=== PATIENT | female | born 1965 | race Caucasian/White ===

== ENCOUNTER 2018-11-24 09:13 | Outpatient (CLI) | payer OTHER, SELFPAY ==
--- NOTE | 2018-11-24 09:03 | DI.RAD_ITS ---
SYMPTOM/DIAGNOSIS: LONG FINGER PAIN RIGHT HAND: The bony structures are normally mineralized. There are mild degenerative changes involving the distal interphalangeal joints. At the distal interphalangeal joint of the right middle finger, there are small adjacent areas of soft tissue calcification. There is no apparent fracture or dislocatio and the findings are presumably on a degenerative basis with nothing to suggest bony erosion.
== END 2018-11-24 09:33 ==
PROVIDERS: PCP Internal Medicine; Visit Provider Physician Assistant Surgical
DX: M79.644 Pain in right finger(s) (principal); M79.641 Pain in right hand; M15.1 Heberden's nodes (with arthropathy)
CPT/HCPCS: 73120

== ENCOUNTER 2018-12-21 08:28 | Outpatient (CLI) | payer OTHER, SELFPAY ==
--- NOTE | 2018-12-21 12:54 | W.PREOPHP ---
Date of service: 12/21/18 Time of Service: 08:54 Assessment and Plan (1) Hyseterectomy, Total Laparoscopic w/ BSO: Current visit: No Status: Resolved (2) Mass of soft tissue of right upper extremity: Current visit: Yes Status: Acute Patient will undergo an excisional biopsy at the base of her right long finger radial lateral side to decrease her at rest and pain with flexion with the differential diagnosis to include a dermoid, subcu cyst , granuloma or ganglion. 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 She has had x-rays of her hand that look fully benign the increase in pain with at rest and with flexion as well as increase in size has prompted the patient to seek operative intervention to remove the offending mass. Pertinent Surgical Information Denies previous medical history of: stroke, TIA, [place], use of sublingual nitroglycerin, GERD, seizures, diabetes, thyroid disease, sleep apnea, liver disease, hepatitis, hematologic disorders Denies previous complications from surgery or anesthesic agents with respect to high fever, prolonged vomiting and difficulty waking up Review of Systems Review of Systems All systems reviewed & are unremarkable except as noted in HPI and below Constitutional Denies fever(s) and Denies headache(s) ENT Denies headache(s), Denies nasal congestion, Denies nasal discharge and Denies sore throat Cardiovascular Denies chest pain, Denies chest pain with activity, Denies palpitations, Denies dyspnea on exertion, Denies orthopnea and Denies paroxysmal nocturnal dyspnea Respiratory Denies cough, Denies excessive phlegm production, Denies pain on inspiration, Denies dyspnea on exertion and Denies wheezing Gastrointestinal Denies abdominal pain, Denies melena, Denies hematochezia, Denies nausea and Denies vomiting Genitourinary Denies hematuria, Denies urinary frequency and Denies dysuria Comments: Denies burning sensation with urination Musculoskeletal Reports as per HPI Neurologic Denies headache(s) Psychiatric Denies anxiety and Denies depression Endocrine Denies palpitations Comments: Denies any unplanned weight changes Allergic/Immunologic Denies wheezing [facility] Medical History History of anxiety (Acute) Benign hypertension Surgical History History of colonoscopy (Chronic) Hyseterectomy, Total Laparoscopic w/ BSO (Resolved) Excision, Distal Clavicle Laparoscopy, diagnostic Ulnar Nerve Transposition (07/08/10) fasciotomy right lateral epicondylitis (08/26/10) Family History Other Cancer Diabetes Heart disease Social History Smoking/Tobacco Use Status: Current every day Tobacco Type: cigarettes Tobacco: How many years used: 30 Alcohol Intake: current Alcohol Intake frequency: a few times a week Drug use: Never Do you feel safe at home: Yes Do you feel safe in your relationship?: Yes Meds Home Medications Medication Instructions Recorded Confirmed Type albuterol sulfate [Proair Hfa] 1 gm INHALATION PRN PRN 11/05/13 12/21/18 History ipratropium 20 mcg-albuterol 100 1 puff IH QID 11/24/18 12/21/18 History mcg/actuation mist for inhalation cetirizine [Zyrtec] 10 mg PO DAILY 12/21/18 12/21/18 History Allergies Allergy/AdvReac Type Severity Reaction Status Date / Time Sulfa (Sulfonamide Allergy Severe rash, Unverified 12/21/18 08:46 Antibiotics) lips/tongue swelling Exam Const General: cooperative HENMT Throat: posterior oropharynx normal Eyes General: appearance normal, both eyes and all related structures Conjunctivae: conjunctivae normal Sclera: sclerae normal Neck Neck: no JVD Carotids: normal carotid upstroke and no bruits Resp Effort & Inspection: normal respiratory effort and able to speak in complete sentences Auscultation: clear to auscultation bilaterally, no rales, no rhonchi and no wheezes Cardio Rate: regular rate Heart Sounds: S1 normal, S2 normal and no murmurs Bruits: no abdominal aortic bruits Pulses: normal peripheral pulses Other: No pulsatile mass noted with palpation over the abdominal aorta GI Palpation: soft and no hepatosplenomegaly Auscultation: normal bowel sounds General: No CVA tenderness Extrem General: no pedal edema Other: exquisite light touch tenderness base of long finger with normal flexor and extensor tendon functioning .nl light toch sensation . no overlying warmth/redness or palpable fluctulance.
--- NOTE | 2018-12-21 13:07 | HPE_ITS ---
Date of service: 12/21/18 Time of Service: 08:54 Assessment and Plan (1) Hyseterectomy, Total Laparoscopic w/ BSO: Current visit: No Status: Resolved (2) Mass of soft tissue of right upper extremity: Current visit: Yes Status: Acute Patient will undergo an excisional biopsy at the base of her right long finger radial lateral side to decrease her at rest and pain with flexion with the differential diagnosis to include a dermoid, subcu cyst , granuloma or ganglion. 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 She has had x-rays of her hand that look fully benign the increase in pain with at rest and with flexion as well as increase in size has prompted the patient to seek operative intervention to remove the offending mass. Pertinent Surgical Information Denies previous medical history of: stroke, TIA, [place], use of sublingual nitroglycerin, GERD, seizures, diabetes, thyroid disease, sleep apnea, liver disease, hepatitis, hematologic disorders Denies previous complications from surgery or anesthesic agents with respect to high fever, prolonged vomiting and difficulty waking up Review of Systems Review of Systems All systems reviewed & are unremarkable except as noted in HPI and below Constitutional Denies fever(s) and Denies headache(s) ENT Denies headache(s), Denies nasal congestion, Denies nasal discharge and Denies sore throat Cardiovascular Denies chest pain, Denies chest pain with activity, Denies palpitations, Denies dyspnea on exertion, Denies orthopnea and Denies paroxysmal nocturnal dyspnea Respiratory Denies cough, Denies excessive phlegm production, Denies pain on inspiration, Denies dyspnea on exertion and Denies wheezing Gastrointestinal Denies abdominal pain, Denies melena, Denies hematochezia, Denies nausea and Denies vomiting Genitourinary Denies hematuria, Denies urinary frequency and Denies dysuria Comments: Denies burning sensation with urination Musculoskeletal Reports as per HPI Neurologic Denies headache(s) Psychiatric Denies anxiety and Denies depression Endocrine Denies palpitations Comments: Denies any unplanned weight changes Allergic/Immunologic Denies wheezing [facility] Medical History History of anxiety (Acute) Benign hypertension Surgical History History of colonoscopy (Chronic) Hyseterectomy, Total Laparoscopic w/ BSO (Resolved) Excision, Distal Clavicle Laparoscopy, diagnostic Ulnar Nerve Transposition (07/08/10) fasciotomy right lateral epicondylitis (08/26/10) Family History Other Cancer Diabetes Heart disease Social History Smoking/Tobacco Use Status: Current every day Tobacco Type: cigarettes Tobacco: How many years used: 30 Alcohol Intake: current Alcohol Intake frequency: a few times a week Drug use: Never Do you feel safe at home: Yes Do you feel safe in your relationship?: Yes Meds Home Medications Medication Instructions Recorded Confirmed Type albuterol sulfate [Proair Hfa] 1 gm INHALATION PRN PRN 11/05/13 12/21/18 History ipratropium 20 mcg-albuterol 100 1 puff IH QID 11/24/18 12/21/18 History mcg/actuation mist for inhalation cetirizine [Zyrtec] 10 mg PO DAILY 12/21/18 12/21/18 History Allergies Allergy/AdvReac Type Severity Reaction Status Date / Time Sulfa (Sulfonamide Allergy Severe rash, Unverified 12/21/18 08:46 Antibiotics) lips/tongue swelling Exam Const General: cooperative HENMT Throat: posterior oropharynx normal Eyes General: appearance normal, both eyes and all related structures Conjunctivae: conjunctivae normal Sclera: sclerae normal Neck Neck: no JVD Carotids: normal carotid upstroke and no bruits Resp Effort & Inspection: normal respiratory effort and able to speak in complete sentences Auscultation: clear to auscultation bilaterally, no rales, no rhonchi and no wheezes Cardio Rate: regular rate Heart Sounds: S1 normal, S2 normal and no murmurs Bruits: no abdominal aortic bruits Pulses: normal peripheral pulses Other: No pulsatile mass noted with palpation over the abdominal aorta GI Palpation: soft and no hepatosplenomegaly Auscultation: normal bowel sounds General: No CVA tenderness Extrem General: no pedal edema Other: exquisite light touch tenderness base of long finger with normal flexor and extensor tendon functioning .nl light toch sensation . no overlying warmth/redness or palpable fluctulance.
== END 2018-12-21 08:48 ==
PROVIDERS: PCP Internal Medicine; Visit Provider Orthopaedic Surgery
DX: R22.31 Localized swelling, mass and lump, right upper limb (principal); Z01.818 Encounter for other preprocedural examination

== ENCOUNTER 2018-12-22 12:15 | Day surgery (SDC) | payer OTHER, SELFPAY ==
[2018-12-22 12:36] VITALS: BP 133/84; PULSE 78; RESP 16; TEMP 35.5; O2SAT 98
[2018-12-22] MEDS: Lactated Ringers 1,000 ML 80 ML IV (12:56)
[2018-12-22] MEDS: ceFAZolin 1 GM/50 ML BAG IVPB (15:05)
[2018-12-22] MEDS: Lidocaine 1% Pres-Free 5 ML VIAL (15:23)
--- NOTE | 2018-12-22 15:36 | W.PM.DSUDISC ---
Discharge Plan Disposition Patient Disposition: HOME Condition: Good Discharge Details Reason For Visit: excision soft tissue mass RMF Attending Provider: Yonatan Roberts Primary Care Provider: Sonido Dominguez Home Meds and New Rx's Prescriptions: Continued Combivent Respimat 20-100 mcg/actuation mist 1 puff IH QID RF: 0 albuterol sulfate [ProAir HFA] 8.5 GM HFA aerosol inhaler 1 gm Inhalation PRN PRNRF: 0 cetirizine [Zyrtec] 10 mg Tablet 10 mg PO DAILY RF: 0 Discharge Instructions Additional Instructions: Try to elevate R hand above heart level as much as possible overnite tonite. May use R hand as much as your discomfort allows. Take tylenol or ibuprofen for pain. May remove dressings, shower, and get incision wet after 48 hours.(Thursday evening.) Leave incision uncovered when it is dry and sealed. Follow up with in 2 weeks. Stand Alone Forms: DSU Post op Instructions, Shoaib Cohen (DSU) Referrals: Yontaan Roberts MD [ [facility] STAFF PHYSICIAN] - (f/u in 2 weeks.) Activity:: Activity as Tolerated Remove Dressings/Wound Care:: 48 hours Shower/Bathe:: 48 hours Diet:: As Tolerated Discharge Orders Discharge Orders: Discharge Order (Routine); Ordered 12/22/18 Ordered By: Yonatan Roberts DS: Diagnosis Discharge Diagnosis (1) Mass of soft tissue of right upper extremity: Status: Acute
--- NOTE | 2018-12-23 13:40 | ROE_ITS ---
Date of Surgery: December 22, 2018 Preoperative Diagnosis: Painful subcutaneous mass, dorsum of right middle finger. Postoperative Diagnosis: Same. Procedure: Excision of painful mass, probable lipoma from the right middle finger. Anesthesia: Local infiltration 1% Xylocaine and 0.5% Marcaine with epinephrine solution. Surgeon: Yonatan Roberts M.D. Indications: This is a 52-year-old white female who has been extremely bothered by a painful subcutaneous nodule o n the dorsoradial aspect of her right middle finger. The mass appears to be adjacent to the base of the proximal phalanx and just radial to the extensor tendon of the middle finger. It's exquisitely t sonia to touch. It is small, probably measures 5 to 6 mm in diameter and appears to be subcu. Excis ion was recommended for pain relief. The risks and complications of the procedure were explained to the patient in detail preoperatively. Description of the Operative Procedure: Patient is taken to the operating room on 12/22/18. She is placed supine on the operating table. The right hand is prepped and draped free in the usual sterile fashion. Proximal tourniquet is applied to the right upper extremity. I infiltrate over the mass with 1% Xylocaine solution and then carry t he infiltration down in a palmar direction to anesthetize the radial digital nerve. The mass is outl ined with a marking pen, then a longitudinal incision is made over the mass. The incision is carried down to the skin to the subcu. There appears to be a small collection of fat consistent with a lipo ma; this is sharply excised. I then free up the extensor marlow, and with a retractor I am able to exp ose the base of the proximal phalanx of the middle finger on the radial side and there is no bony mas s projecting. The tendon itself looks normal. The incision is done with tourniquet control. Subcut aneous veins are now cauterized. I don't send a specimen to Pathology because it looks like benign f atty tissue. The wound margins were infiltrated with 0.5% Marcaine with epinephrine solution and the skin edges were approximated with interrupted 4-0 nylon sutures. The wound was dressed with Xerofor m gauze, sterile gauze 4x4s, then wrapped with a Mary Ellen bandage. Tourniquet was released and there wa s no breakthrough bleeding to the dressing. The patient tolerated the procedure well and is discharg ed to Day Surgery Unit in good condition. Patient is discharged home from Day Surgery Unit with instructions to use her right hand as much as scott sunshine allows. She is to keep the dressings intact and dry for 72 hours. After 72 hours she may remove the dressings, shower or bathe and get the incision wet. She can leave the incision uncovered when it's dry and sealed. She can take ibuprofen or Tylenol for pain. She will follow up with Dr. Roberts in two weeks.
== END 2018-12-22 16:01 | disposition home or self-care (01) ==
PROVIDERS: PCP Internal Medicine; Visit Provider Orthopaedic Surgery
PROC: (CPT 11421; principal; 2018-12-22 15:00)
DX: R22.31 Localized swelling, mass and lump, right upper limb (principal); M79.644 Pain in right finger(s); I10 Essential (primary) hypertension
CPT/HCPCS: 11421; 99211; J0690

== ENCOUNTER 2019-05-11 01:20 | Outpatient (CLI) | payer OTHER, SELFPAY ==
--- NOTE | 2019-05-11 08:58 | DI.MAMMO_ITS ---
SYMPTOM/DIAGNOSIS: SCREENING, Z12.31, FAMILY H/O BREAST CA MAMMOGRAMS: Mammograms were interpreted according to the usual protocol including computer analysis with CAD system, tomosynthesis and C view imaging. Comparison is made with prior examinations. Breast density, category B. No suspicious masses or microcalcifications are seen. There is no definite evidence of malignancy. IMPRESSION: Negative mammogram. Routine screening is recommended. Category 1. MQSA ASSESSMENT OF FINDINGS: Negative. Category 1. Patient will receive a letter notifying them of these results. BI-RADS category B. There are scattered areas of fibroglandular density.
== END 2019-05-11 01:40 ==
PROVIDERS: PCP Internal Medicine; Visit Provider Nurse Practitioner Family
DX: Z12.31 Encounter for screening mammogram for malignant neoplasm of breast (principal); Z80.3 Family history of malignant neoplasm of breast
CPT/HCPCS: 77063; 77067

== ENCOUNTER 2020-03-13 11:59 | Outpatient (CLI) | payer OTHER, SELFPAY ==
--- NOTE | 2020-03-13 11:45 | DI.RAD_ITS ---
EXAM: XR ELBOW RT COMPLETE CLINICAL HISTORY: right elbow pain. TECHNIQUE: 2D digital imaging was performed. COMPARISON: No exams were available for comparison FINDINGS: BONES: No acute fracture is present. No bony destructive lesion is seen. There is a well corticated osseous density adjacent to the lateral epicondyle consistent with old injury. JOINTS: The elbow is normally aligned. No joint effusion is seen. SOFT TISSUE: Normal. IMPRESSION: No acute abnormality. DATA REPOSITORY: RADIATION DOSE DELIVERED:
== END 2020-03-13 12:19 ==
PROVIDERS: PCP Internal Medicine; Referring Provider Internal Medicine; Visit Provider Physician Assistant Surgical
DX: M25.521 Pain in right elbow (principal); M79.89 Other specified soft tissue disorders
CPT/HCPCS: 73080

== ENCOUNTER 2020-03-30 07:50 | Outpatient (CLI) | payer OTHER, SELFPAY ==
[2020-04-01 17:23] LABS: COVID-19 RT-PCR Result NEGATIVE (Negative)
== END 2020-03-30 08:10 ==
PROVIDERS: PCP Internal Medicine; Visit Provider Orthopaedic Surgery
DX: Z01.818 Encounter for other preprocedural examination (principal)
CPT/HCPCS: U0003

== ENCOUNTER 2020-04-02 07:29 | Day surgery (SDC) | payer OTHER, SELFPAY ==
[2020-04-02] VITALS (9 sets, daily range): BP systolic 96–127; BP diastolic 57–89; PULSE 72–90; RESP 11–19; TEMP 36.2–36.6; O2SAT 92–98
[2020-04-02] MEDS: Lactated Ringers 1,000 ML 80 ML IV (08:23)
[2020-04-02] MEDS: ceFAZolin 1 GM/50 ML BAG IVPB (09:05)
--- NOTE | 2020-04-02 09:58 | PDOC.DSDIS_ITS ---
Discharge Plan Disposition Patient Disposition: HOME Condition: Good Discharge Details Reason For Visit: EXCISION OF EXOSTOSIS R HUMERUS Attending Provider: Yonatan Roberts Primary Care Provider: Sonido Dominguez Home Meds and New Rx's Prescriptions: New hydrocodone-acetaminophen 5-325 mg tablet 1 tab PO Q6H PRN (Reason: pain) Qty: 7 RF: 0 ibuprofen 600 mg tablet 600 mg PO Q6H PRNQty: 20 RF: 0 Continued Combivent Respimat 20-100 mcg/actuation mist 1 puff IH QID RF: 0 fluoxetine [Prozac] 40 mg capsule 40 mg PO DAILY RF: 0 buspirone 7.5 mg tablet 7.5 mg PO DAILY RF: 0 albuterol sulfate [ProAir HFA] 8.5 GM HFA aerosol inhaler 1 gm Inhalation PRN PRNRF: 0 cetirizine [Zyrtec] 10 mg Tablet 10 mg PO DAILY RF: 0 Discharge Instructions Additional Instructions: May take R arm out of sling and move R elbow as much as your discomfort allows. Discontinue sling when you no longer need it for pain. Keep dressings dry and in place for 72 hours. After 72 hours, remove dressings, shower, and get incision wet. May then leave incision uncovered if it is dry and sealed. Use R arm as much as your discomfort allows. Follow up with in 2 weeks. Take ibuprofen for mild pain. Take hydrocodone for breakthru pain, if needed. Referrals: Yonatan Roberts MD [ [facility] STAFF PHYSICIAN] - (f/u in 2 weeks.) Equipment/Supplies: Sling Activity:: Activity as Tolerated Remove Dressings/Wound Care:: 72 hours Shower/Bathe:: 72 hours Diet:: As Tolerated Discharge Orders Discharge Orders: Discharge Order (Routine); Ordered 04/02/20 Ordered By: Yonatan Roberts DS: Diagnosis Discharge Diagnosis (1) Exostosis of right humerus: Status: Acute
[2020-04-02] MEDS: fentaNYL 100 MCG/2 ML VIAL IVP (10:35)
--- NOTE | 2020-04-02 11:12 | ROE_ITS ---
Date of service: 04/02/20 Time of Service: 11:13 Operative Note Operative Note DATE OF PROCEDURE: 04/02/20 PRE-OP DIAGNOSIS: Exostosis right distal humerus POST-OP DIAGNOSIS: same PROCEDURE: Excision of exostosis right distal humerus ANESTHESIA: GETA PATHOLOGY: none sent TOURNIQUET TIME: 48 COMPLICATIONS: None Patient was transported to: PACU Patient's condition: stable Indications: Is a 54-year-old white female who underwent successful surgery for lateral epicondylitis 10 years ago. She presents now with a painful mass over the lateral condyle. X-rays revealed the mass to be an exostosis arising the lateral epicondyle. Most likely this was posttraumatic due to previous surgery. It is quite prominent and is painful whenever she bumps it. Excision of the exostosis is recommended to alleviate her pain. There is complications of procedure explained patient detail preop. Procedure Description: Patient was taken the operating room on 04/02/2020 and placed supine operative table. General anesthetic was administered. Proximal tourniquet was applied to the right upper arm. The right upper extremity was prepped from fingers to turn again and draped free in usual sterile fashion. I made an incision in line with her old operative scar over the lateral condyle. Incision was carried down through the skin and subcu to the fascia. Incision was made in the fascia over the bony prominence sharp dissection was used to free the soft tissues around the exostosis. The exostosis was then removed using a rongeur, small Mccracken osteotomes and a mallet. The bony bed was then further smoothed with a nasal rasp. The wound was irrigated with saline solution. The fascia and that was incised was approximated with interrupted [id number] sutures of 2-0 Vicryl suture tear. The wound margins were infiltrated with 0.5% Marcaine with epinephrine solution. Wound was irrigated with saline solution. The skin and subcu were approximated interrupted 3-0 nylon sutures. The wound was dressed with Xeroform gauze sterile gauze 4 x 4's ABD pad wrapped with a Kerlix bandage and then wrapped with a 4 inch [place] bandage. The right arm was placed in a sling. Tourniquet was released and there was no breakthrough bleeding to the skin. The patient's general anesthesia was reversed complications she was discharged to the recovery room in good condition. Patient was later discharged home from day surgery unit and fully recovered from her general anesthesia. She is given instructions to take her right arm out of the sling as much as discomfort allows. She may discontinue the sling when it is no longer needed for comfort. She is keep the dressings dry and intact for 72 hours. For 72 hours she can remove the dressings shower and get her incision wet. She can leave the incision uncovered when is dry and sealed. She is given prescription for mild pain of ibuprofen 600 mg p.o. every 6 hours as needed. She is given a prescription for breakthrough pain of hydrocodone with APAP 01/14/2025. She will follow-up with Dr. Roberts in 2 weeks. May use her right arm as much as discomfort allows.
== END 2020-04-02 12:05 | disposition home or self-care (01) ==
PROVIDERS: PCP Internal Medicine; Visit Provider Orthopaedic Surgery
PROC: (CPT 24105; principal; 2020-04-02 08:30)
DX: M89.8X2 Other specified disorders of bone, upper arm (principal)
CPT/HCPCS: 24110; J0690; J1100; J1885; J2250; J2405; J2704; J3010; L3650

== ENCOUNTER 2020-06-13 02:42 | Outpatient (CLI) | payer OTHER, SELFPAY ==
--- NOTE | 2020-06-13 12:16 | DI.MAMMO_ITS ---
EXAM: MAMMO SCREENING CLINICAL HISTORY: SCREENING,Z12.31 TECHNIQUE: Mammograms were interpreted according to the usual protocol including computer analysis w [employer] CAD system, tomosynthesis and C-view imaging. COMPARISON: 2010 through 2018 FINDINGS: The breasts are composed of scattered fibroglandular densities, Breast Density category B. No suspicious masses or suspicious microcalcifications are seen. No skin thickening or abnormal axillary lymph nodes are seen. There has been no significant change from prior exams. There is motion on the left MLO view. Patient should return for repeat left MLO view at no additiona l charge. IMPRESSION: BI-RADS Category 0 - Assessment Incomplete: Need additional imaging evaluation Breast Density - Category B, scattered fibroglandular densities. A negative radiographic report should not delay biopsy if a dominant or clinically suspicious mass is present. Up to ten percent of cancers are not identified on mammography. A negative report may reinforce clinical impression. Adenosis and dense breasts may obscure an underlying neoplasm. False positive reports average 6 to 10%. Patient will receive a letter notifying them of these results.
== END 2020-06-13 03:02 ==
PROVIDERS: PCP Internal Medicine; Visit Provider Nurse Practitioner Family
DX: Z12.31 Encounter for screening mammogram for malignant neoplasm of breast (principal)
CPT/HCPCS: 77063; 77067

== ENCOUNTER 2020-06-20 00:54 | Outpatient (CLI) | payer OTHER, SELFPAY ==
--- NOTE | 2020-06-20 | DI.MAMMO_ITS ---
EXAM: MG MAMMO SCREEN CALL BACK UNI CLINICAL HISTORY: F/U MAMMO 06/13 MOTION ON LT MLO VIEW, NO CHARGE TECHNIQUE: Mammograms were interpreted according to the usual protocol including computer analysis w [facility] CAD system, tomosynthesis and C-view imaging. COMPARISON: Prior studies including April 2019. FINDINGS: Additional MLO views of the left breast were obtained today to complete this examination due to motio n artifact on the original study of June 13. No mass or clumped microcalcification is seen. No change in appearance in comparison with prior studies including April 2019. IMPRESSION: No specific evidence of malignancy at this time. routine screening examinations are recommended at yearly intervals in this age group according to the ACS/ACR guidelines. BI-RADS Category 1 - Negative Breast Density - Category B - Scattered areas of fibroglandular density
== END 2020-06-20 01:14 ==
PROVIDERS: PCP Internal Medicine; Visit Provider Nurse Practitioner Family
DX: Z12.31 Encounter for screening mammogram for malignant neoplasm of breast (principal)
CPT/HCPCS: 77063; 77067

== ENCOUNTER 2021-09-27 01:48 | Outpatient (CLI) | payer OTHER, SELFPAY ==
--- NOTE | 2021-09-27 | DI.DEXA_ITS ---
Exam(s) XR DEXA BONE DENSITY W/WO TYLER EXAM: XR DEXA BONE DENSITY W/WO TYLER CLINICAL HISTORY: OSTEOPENIA,M85.80,[facility],Z00.00 TECHNIQUE: Routine DEXA evaluation of the lumbar spine, hip, or forearm. COMPARISON: Prior DEXA scan June 2011 FINDINGS: Performed on a [employer] unit. Lateral image: No compression fracture evident. Lumbar Spine total T-score: -2.8. Prior 2010 reading was -1.0 Hip total T-score:-1.9.. Prior 2010 reading was -0.7 Independent reading at the level of the femoral neck yields at T-score of -2.8. Forearm total T-score: 1.1 IMPRESSION: Bone mineral density measures in the osteoporosis range. Fracture risk is high. Note: Any spine fracture indicates 5x risk for subsequent spine fracture and 2x risk for subsequent h ip fracture. World Health Organization criteria for BMD interpretation classify patients: Normal...... T- Score at or above -1.0 Osteopenic... T- Score between -1.0 and -2.5 Osteoporosis... T-Score at or below -2.5
== END 2021-09-27 02:08 ==
PROVIDERS: PCP Internal Medicine; Visit Provider Nurse Practitioner Family
DX: Z00.00 Encounter for general adult medical examination without abnormal findings (principal); M85.89 Other specified disorders of bone density and structure, multiple sites; M81.8 Other osteoporosis without current pathological fracture
CPT/HCPCS: 77080

== ENCOUNTER → 2022-05-21 02:31 | Outpatient (CLI) | payer OTHER, SELFPAY ==
--- NOTE | 2022-05-21 11:55 | DI.MAMMO_ITS ---
Exam(s) MAMMO SCREENING EXAM: MAMMO SCREENING CLINICAL HISTORY: SCREENING MAMMO Z12.31 TECHNIQUE: Bilateral full field digital CC and MLO mammographic images were obtained with 3D tomosyn thesis and utilizing computer aided detection (CAD). COMPARISON: Available for comparison. FINDINGS: Masses/Architectural Distortion: None seen. Microcalcifications: No suspicious pleomorphic-type are seen. Skin Thickening/Nipple Retraction: None. IMPRESSION: 1. No significant interval change with no specific features of malignancy noted. 2. Unless there is more urgent need, screening mammography is recommended, as per [employer] guidelines. BI-RADS Category 1 - Negative Breast Density - Category B - Scattered areas of fibroglandular density Breast density category C or D implies that the patient has dense breast tissue. Dense breast tissue is very common and is not abnormal but dense breast tissue can make it harder to find cancer on a ma mmogram. Also, dense breast tissue may increase their breast cancer risk. This information about the result of the mammogram report was provided to the patient to raise their awareness. Use this report when you speak with the patient about their risks for breast cancer, which includes their family hist ory. At that time, you may recommend for more screening tests (Ultrasound or MRI) as they might be us eful based on their risk. A negative radiographic report should not delay biopsy if a dominant or clinically suspicious mass is present. Up to ten percent of cancers are not identified on mammography. A negative report may reinforce clinical impression. Adenosis and dense breasts may obscure an underlying neoplasm. False positive reports average 6 to 10%. Patient will receive a letter notifying them of these results.
== END ==
PROVIDERS: PCP Internal Medicine; Visit Provider Nurse Practitioner Family
DX: Z12.31 Encounter for screening mammogram for malignant neoplasm of breast (principal)
CPT/HCPCS: 77063; 77067

== ENCOUNTER 2022-06-05 10:44 | Outpatient (CLI) | payer OTHER, SELFPAY ==
--- NOTE | 2022-06-05 10:15 | DI.RAD_ITS ---
Exam(s) XR HAND RT COMPLETE EXAM: XR HAND RT COMPLETE CLINICAL HISTORY: right hand pain. TECHNIQUE: 2D digital imaging was performed. Three views. COMPARISON: CR XR hand RT limited from 11/24/2018 FINDINGS: BONES: No acute fracture is present. No bony destructive lesion is seen. JOINTS: No dislocation present. There degenerative changes of the interphalangeal joints, greatest at the 2nd and 3rd distal interphalangeal joints. Mild degenerative changes are noted at the 1st carpa l metacarpal joint and interphalangeal joint of the thumb. SOFT TISSUE: Normal. IMPRESSION: Moderate degenerative changes of the distal interphalangeal joints of the 2nd and 3rd fingers. DATA REPOSITORY: RADIATION DOSE DELIVERED:
== END 2022-06-05 10:45 | disposition home or self-care (01) ==
LOC: DIORS 10:44
PROVIDERS: PCP Internal Medicine; Referring Provider Internal Medicine; Visit Provider Physician Assistant
DX: M19.041 Primary osteoarthritis, right hand (principal)
CPT/HCPCS: 73130

== ENCOUNTER → 2022-08-08 00:13 | Outpatient (CLI) | payer OTHER, SELFPAY ==
--- NOTE | 2022-08-08 06:45 | DI.MRI_ITS ---
Exam(s) MR UPPER JOINT RT WO EXAM: MR UPPER JOINT RT WO CLINICAL HISTORY: M25.531RT WRIST PAIN M18.11 OSTEOARTHRITIS RT HAND. TECHNIQUE: Multiplanar multisequence MRI was performed. COMPARISON: CR XR HAND RT COMPLETE from 06/05/2022 FINDINGS: MR examination of the thumb was performed according to the usual protocol. There appears to be thinn ing of articular cartilage at the greater multangular 1st metacarpal joint. There are moderate danielle nal osteophytes of the adjacent bones. There are prominent subchondral cysts of the greater multangu lar and lesser multangular and there are areas of abnormal signal in the base of the 1st metacarpal a s well. Ligamentous and tendinous structures appear intact. At the 1st MCP joint, ligaments and tendons appear intact. There may be mild thinning of the articul ar cartilage. No significant focal bony signal abnormality seen. IP joint of the thumb is unremarkable except for possible mild articular cartilage narrowing period n o ligamentous or tendinous abnormality seen. IMPRESSION: Degenerative changes, most marked at greater multangular 1st metacarpal joint. No significant ligame ntous or tendinous pathology identified. DATA REPOSITORY:
== END ==
PROVIDERS: PCP Internal Medicine; Visit Provider Student in an Organized Health Care Education/Training Program
DX: M25.531 Pain in right wrist (principal); M18.11 Unilateral primary osteoarthritis of first carpometacarpal joint, right hand; M25.741 Osteophyte, right hand
CPT/HCPCS: 73221

== ENCOUNTER 2022-09-02 10:26 | Day surgery (SDC) | payer OTHER, SELFPAY ==
[2022-09-02] VITALS (7 sets, daily range): BP systolic 89–140; BP diastolic 67–89; PULSE 69–105; RESP 10–16; TEMP 36.1–36.5; O2SAT 92–96; BMI 20.3
--- NOTE | 2022-09-02 09:40 | PDOC.DSDIS_ITS ---
Date of service: 09/02/22 Time of Service: 14:00 Discharge Plan Disposition Patient Disposition: Home Condition: Good Discharge Details Reason For Visit: Right thumb CMC DJD Attending Provider: Isreal Mclean Primary Care Provider: Sonido Dominguez Home Meds and New Rx's Prescriptions: New acetaminophen 500 mg tablet 500 mg PO Q6H PRN PRN (Reason: pain) Qty: 60 3RF hydrocodone-acetaminophen 5-325 mg tablet 1 tab PO Q6H PRN (Reason: pain) Qty: 10 0RF ibuprofen 600 mg tablet 600 mg PO TID PRN (Reason: pain) Qty: 90 3RF Continued sertraline 50 mg tablet 50 mg PO DAILY Spiriva Respimat 1.25 mcg/actuation mist 2 puff inhalation DAILY buspirone 7.5 mg tablet 7.5 mg PO DAILY albuterol sulfate [ProAir HFA] 8.5 GM HFA aerosol inhaler 1 gm Inhalation PRN PRN calcium carbonate-vit D3-min 600 mg calcium- 400 unit Tablet 2 tab PO DAILY Discontinued ibuprofen 600 mg tablet 600 mg PO Q6H PRNQty: 20 0RF Discharge Instructions Additional Instructions: Thumb CMC Discharge Instructions Activity: You should keep the hand/thumb elevated as much as possible for the first few days. You may use the other fingers as tolerated but avoid trying to do too much too soon. You may perform light activities with the splint in place. Dressing/Cast: Your soft splint/dressing should stay in place at all times. Do NOT get it wet. You may loosen the LUCHO wrap if you feel it is too tight and then rewrap more loosely. Medications: - You should take Tylenol and Ibuprofen for baseline pain control. - You have Hydrocodone for breakthrough pain. - You may apply ice over the thumb. Follow-up: 10-14 days Referrals: Isreal Mclean MD [ [facility] STAFF PHYSICIAN] - Activity:: Elevate Remove Dressings/Wound Care:: Do Not Remove Shower/Bathe:: Cover Diet:: As Tolerated Discharge Orders Discharge Orders: Discharge Order (Routine); Ordered 09/02/22 Ordered By: Nohelia Tatum
--- NOTE | 2022-09-02 11:33 | W.ANESPRE ---
General Info Date of Service Date Performed: 09/02/22 Height: 5 ft 2 in Weight: 50.5 kg Body Mass Index (BMI): 20.3 Surgical Procedure: Operation Date: 09/02/22 13:25 Proposed Procedure Side Surgeon p Thumb CMC Arthroplasty Right Isreal Mclean MD Meds Allergies and Home Medications Allergies Allergy/AdvReac Type Severity Reaction Status Date / Time Sulfa (Sulfonamide Allergy Severe rash, Unverified 09/02/22 10:48 Antibiotics) lips/tongue swelling Home Medication Medication Instructions Recorded albuterol sulfate 90 mcg/actuation 1 gm inhalation PRN PRN 11/05/13 aerosol inhaler (ProAir HFA) buspirone 7.5 mg tablet 7.5 mg PO DAILY 03/13/20 ibuprofen 600 mg tablet 600 mg PO Q6H PRN #20 tabs 04/02/20 sertraline 50 mg tablet 50 mg PO DAILY 06/05/22 tiotropium bromide 1.25 2 puff inhalation DAILY 06/05/22 mcg/actuation mist for inhalation (Spiriva Respimat) calcium carb-vit D3-minerals 600 2 tab PO DAILY 09/02/22 mg calcium-400 unit tablet Current Visit Medications: Current Medications Generic Name Dose Route Start Last Admin Trade Name Freq PRN Reason Stop Dose Admin Acetaminophen 650 mg 09/02/22 09:39 Acetaminophen 325 Mg Tab PO Q4H PRN PRN Ringer's Solution 1,000 mls @ 80 mls/hr 09/02/22 06:00 IV 10/01/22 23:59 INFUSION AUGUSTIN Cefazolin Sodium/Dextrose 2 gm in 50 mls @ 100 mls/hr 09/02/22 06:00 Ancef Duplex IVPB 10/01/22 23:59 PREOP AUGUSTIN IV Miscellaneous Supplies 1 each 09/02/22 06:00 Iv Access IV 10/01/22 23:59 DIRECTED AUGUSTIN Oxycodone HCl 5 mg 09/02/22 09:39 Oxycodone 5 Mg Tab PO Q3H PRN PRN Pain Sodium Chloride 0 ml 09/02/22 06:00 Normal Saline Flush 10 Ml Syr IV 10/01/22 23:59 PRN PRN Sodium Chloride 0 ml 09/02/22 06:00 Normal Saline 10 Ml Vial IJ 10/01/22 23:59 DIRECTED PRN Sterile Water 0 ml 09/02/22 06:00 Water,Injection,Sterile 10 Ml Vial IJ 10/01/22 23:59 DIRECTED PRN PFSH Active Problems Active Problems: Problem Status Onset Code Mass of soft tissue of right upper extremity R22.31 Osteophyte of elbow M25.729 Exostosis of right humerus M89.8X2 Mass of finger of right hand R22.31 Osteoarthritis of carpometacarpal joint of right thumb M18.11 De Quervain's tenosynovitis, right M65.4 Medical History Medical History (Updated 09/02/22 @ 10:48 by Jacqueline Boykin) Asthma Benign hypertension on no meds thought manifestation ofsituational stress History of anxiety panic attacks some associated with sob. on no anxiety meds presently Medical History Comments:: Patient reports having nausea and sometimes vomiting day after surgeries. Surgical History Surgical History Excision, Distal Clavicle R fasciotomy right lateral epicondylitis (08/26/10) Bilateral History of colonoscopy Hyseterectomy, Total Laparoscopic w/ BSO with incidental appendectomy Laparoscopy, diagnostic Ulnar Nerve Transposition (07/08/10) right elbow Tobacco Smoking/Tobacco Use Status: Current every day Tobacco Type: cigarettes Smoking cigarettes per day: 10 Alcohol Alcohol Intake: current Alcohol intake frequency: a few times a week Alcohol type: beer Substance Use Substance use: Never Substance use type: does not use Vital Signs and Lab Results Vital Signs Most Recent Vital Signs in EMR: Most Recent Vital Signs Temp Pulse Resp BP Pulse Ox 36.5 C 105 H 16 140/86 96 09/02/22 11:05 09/02/22 11:05 09/02/22 11:05 09/02/22 11:05 09/02/22 11:05 Lab Results Blood Type / Crossmatch: No Data to Display Complete Blood Count: No Data to Display Complete Metabolic Panel: No Data to Display Liver Function Panel: No Data to Display Coagulation Panel: No Data to Display Cardiac Panel: No Data to Display Arterial Blood Gas: No Data to Display Venous Blood Gas: No Data to Display Pancreas Panel: No Data to Display Thyroid Panel: No Data to Display Infectious Disease: No Data to Display Blood Cultures: No Data to Display Toxicology Panel: No Data to Display Anesthesia Assessment and Plan Anesthesia History Personal History: No History of Anesthesia Complications and PONV Family History: No Family History of Anesthesia Complications Exercise Tolerance Exercise Tolerance: Metabolic Equivalents>4 Pertinent Negatives Pertinent Negatives: No Symptoms of GERD, No Major Cardiovascular Symptoms or Complaints, No Major Pulmonary Symptoms or Complaints and No History of CVA/TIA Cardiac & Pulmonary Exam Cardiac Exam: Normal S1/S2 Heart Sounds Pulmonary Exam: Clear Bilateral Breath Sounds Cardiac and Pulmonary Comment:: Spiriva daily, Albuterol usually only once a day. Chronic smokers cough. Implantable Cardiac Device Does patient have a Pacemaker or an ICD?: No Airway Exam Known Difficult Airway: No Mallampati Class: 1 Mouth Opening: Normal (> 3cm) Thyromental Distance: Less than 3 cm Neck Range of Motion: Full ROM Neck Circumference: Normal Teeth Condition: Removable Dentures/Plates Upper, Removable Dentures/Plates Lower and Edentulous ASA Classification ASA Score: ASA 2 Emergency Case?: No NPO Status NPO Status: NPO Clears >2 hours, Solids >8 hours Anesthesia Plan Resuscitation Status: Full Code Anesthesia Technique: General Anesthesia Airway Planned: LMA Monitors Used: Standard Monitors
[2022-09-02] MEDS: Lactated Ringers 1,000 ML 80 ML IV (11:40)
--- NOTE | 2022-09-02 12:15 | DI.RAD_ITS ---
Exam(s) XR HAND RT LIMITED EXAM: XR HAND RT LIMITED CLINICAL HISTORY: Osteoarthritis of CMC joint of right thumb. TECHNIQUE: 2D digital imaging was performed. COMPARISON: No exams were available for comparison FINDINGS: Prox provided during orthopedic procedure right hand. Images reveal a needle in the 1st carpometacar pal joint. See procedure report for details. IMPRESSION: Cumulative dose= 0.0077mGy DATA REPOSITORY: RADIATION DOSE DELIVERED:
[2022-09-02] MEDS: ceFAZolin 2 GM/50 ML BAG IVPB (13:01)
[2022-09-02] MEDS: Bupivacaine 0.25% Pres-Free 30 ML VIAL (13:05)
--- NOTE | 2022-09-02 15:43 | W.ANESPOSTOP ---
Postoperative Evaluation Date, Time and Location Date Performed: 09/02/22 Time Performed: 15:43 Patient Location: Day Surgery Unit Vital Signs Most Recent Imported Vital Signs: Most Recent Vital Signs Temp Pulse Resp BP Pulse Ox 36.1 C L 73 16 131/81 92 09/02/22 15:08 09/02/22 15:08 09/02/22 15:08 09/02/22 15:08 09/02/22 15:08 Pain Score Most Recent Pain Score: Most Recent Pain Score Pain Level 3 09/02/22 15:08 Assessment Mental Status: Awake (Alert & Oriented to Patient Baseline) Airway and Respiratory Function: Patent airway with normal (patient baseline) respiratory exam Cardiovascular Function: Hemodynamically Stable Hydration Status: Adequately Hydrated Nausea & Vomiting: No Nausea or Vomiting Pain: Pain is tolerable per patient Peripheral Nerve Block: Patient did not receive a nerve block
--- NOTE | 2022-09-02 16:18 | ROE_ITS ---
Date of service: 09/02/22 Time of Service: 14:00 Operative Note Operative Note DATE OF PROCEDURE: 09/02/22 PRE-OP DIAGNOSIS: Right Thumb CMC Arthritis POST-OP DIAGNOSIS: same PROCEDURE: Right trapezial resection arthroplasty with suture suspensionplasty SURGEON: Isreal Mclean RESERVATION AGENT: Nohelia Tatum ANESTHESIA TYPE: General LMA/ETT Refer to Anesthesia Record ESTIMATED BLOOD LOSS: 10 PATHOLOGY: none sent TOURNIQUET TIME: 33 COMPLICATIONS: None Patient was transported to: PACU Patient's condition: stable Indications: Doreen is a 57 year old female who has had symptoms of thumb CMC arthritis with pain and decreased mobility. Nonoperative treatment options had been trialed. Given their failure, I offered operative intervention. I reviewed the technical details. I reviewed the risk of the procedure to include bleeding, infection, pain, stiffness, instability, subsidence, damage to neighboring arteries, damage to the superficial radial nerve, and weakness. Despite these risks, the patient elected to proceed. Findings: There is notable arthrosis between the trapezium and the first metacarpal and the scaphoid but without significant bony deformity. Procedure Description: Doreen was greeted in the preoperative holding area. Name and surgical site were confirmed. The history and physical was completed. The consent was reviewed the patient and signed. She was taken back to the operating room. The patient was placed and monitored anesthesia care. The right was then prepped with ChloraPrep and draped in a standard fashion after a nonsterile tourniquet was placed high up onto the arm. Prophylactic antibiotics in the form of cefazolin were administered. A timeout was performed for safe surgery. The surgical site was drawn on the skin overlying the dorsal radial border of the wrist. The planned surgical field was anesthetized with 0.25% bupivacaine with epinephrine. The limb was exsanguinated and the tourniquet was inflated where it stayed for 45 minutes. A 3 cm incision was made longitudinally over the radial wrist from the level of the radial styloid to just past the base of the first metacarpal. The skin was incised only. The deep tissue and subcutaneous fat was dissected with a tenotomy scissors trying to protect branches of the superficial radial nerve. Any branches that were identified were retracted out of the way. The first compartment extensor tendons were then identified. The interval between EPL and EPB was identified. The base of the first metacarpal was palpated. A needle was placed into the joint between the first metacarpal and the trapezium. A single x-ray was used to confirm appropriate positioning. The capsule of the trapezium was then incised. The radial border of the bone was identified. Soft tissues around trapezium were dissected bluntly to allow relaxation of vital arterial structures traversing the trapezium. Using a Radford blade the capsule was elevated off the trapezium in a subperiosteal fashion. Once it appeared to have all the capsular attachments released, the trapezium was then removed using a rongeur. The wound was inspected to make sure all portions of the trapezium were removed. X-ray was used to confirm appropriate removal of all bony fragments. The wound was then thoroughly irrigated. Using a 2-0 FiberWire then performed a suture suspension plasty. This was done by incorporating capsule and attachments of the APL at the base of the first metacarpal and creating a sling connected to the deep flexor carpi radialis tendon seen traversing deep within the wound towards the second metacarpal. This was done twice to create a crossing network of 2-0 suture. This was then tied overlying the base of the first metacarpal making sure not to over tighten and hourglass the tendons. This provided support to the first metacarpal to prevent any excessive subsidence. The tourniquet was then released. There is no significant bleeding. The capsule of the trapezium was then reapproximated with a 2-0 Vicryl. The skin was closed with 4-0 Monocryl in a running, subcuticular fashion. This was reinforced with skin glue. The hand was dressed with 4 x 4's, web roll into a soft thumb spica splint. All counts are correct. Patient was transferred back to PACU in a stable condition.
== END 2022-09-02 15:35 | disposition home or self-care (01) ==
PROVIDERS: PCP Internal Medicine; Visit Provider Student in an Organized Health Care Education/Training Program
PROC: (CPT 25447; principal; 2022-09-02 13:15)
DX: M18.11 Unilateral primary osteoarthritis of first carpometacarpal joint, right hand (principal); I10 Essential (primary) hypertension; J45.909 Unspecified asthma, uncomplicated
CPT/HCPCS: 25447; 76000; 73120; J0690; J1100; J1885; J2405; J2704

== ENCOUNTER 2022-12-11 15:09 | Outpatient (REF) | payer OTHER, SELFPAY ==
[2022-12-11 16:57] LABS: HCT 45.2 % (36.0-46.0); HGB 15.6 g/dL (11.2-15.7); MCH 34.7 pg (27.0-33.0); MCHC 34.5 % (32.0-36.0); MCV 101 fL (80-95); MPV 10.4 fL (8.0-11.0); Platelet Count 270 10^3/uL (130-400); RBC 4.49 10^6/uL (3.93-5.22); RDW 11.9 % (11.7-14.6); WBC 6.75 10^3/uL (4.4-10.8)
[2022-12-11 17:14] LABS: ALT 39 U/L (14-59); AST 26 U/L (15-37); Albumin 4.3 g/dL (3.4-5.0); Alkaline Phosphatase 106 U/L (46-116); Anion Gap 9.6 mmol/L (3-11); BUN 7 mg/dL (7-18); Bilirubin, Total 0.4 mg/dL (0.2-1.0); CO2 27.4 mmol/L (21.0-32.0); CREATININE 0.7 mg/dL (0.55-1.02); Chloride 103 mmol/L (98-107); Estimated GFR 100.81 (mL/min/1.73m2); Glucose 97 mg/dL (74-106); Potassium 4.4 mmol/L (3.5-5.1); Sodium 140 mmol/L (136-145); Total Protein 7.5 g/dL (6.4-8.2)
== END 2022-12-11 15:10 | disposition home or self-care (01) ==
LOC: NCHCN 15:09
PROVIDERS: PCP Internal Medicine; Visit Provider Nurse Practitioner Family
DX: Z00.00 Encounter for general adult medical examination without abnormal findings (principal); Z13.0 Encounter for screening for diseases of the blood and blood-forming organs and certain disorders involving the immune mechanism; Z13.228 Encounter for screening for other metabolic disorders
CPT/HCPCS: 80053; 85027

== ENCOUNTER → 2023-06-16 00:29 | Outpatient (CLI) | payer OTHER, SELFPAY ==
--- NOTE | 2023-06-16 | DI.MAMMO_ITS ---
Exam(s) MAMMO SCREENING EXAM: MAMMO SCREENING CLINICAL HISTORY: SCREENING MAMMO FOR BREAST CACNER Z12.31 TECHNIQUE: Mammograms were interpreted according to the usual protocol including computer analysis w [employer] CAD system, tomosynthesis and C-view imaging. COMPARISON: 2014 through 2021 FINDINGS: The breasts are composed of scattered fibroglandular densities, Breast Density category B. No suspicious masses or suspicious microcalcifications are seen. No skin thickening or abnormal axillary lymph nodes are seen. There has been no significant change from prior exams. IMPRESSION: BI-RADS Category 1, Negative mammogram Yearly screening mammography is recommended. Breast Density - Category B, scattered fibroglandular densities. A negative radiographic report should not delay biopsy if a dominant or clinically suspicious mass is present. Up to ten percent of cancers are not identified on mammography. A negative report may reinforce clinical impression. Adenosis and dense breasts may obscure an underlying neoplasm. False positive reports average 6 to 10%. Patient will receive a letter notifying them of these results.
== END ==
PROVIDERS: PCP Internal Medicine; Visit Provider Nurse Practitioner Family
DX: Z12.31 Encounter for screening mammogram for malignant neoplasm of breast (principal)
CPT/HCPCS: 77063; 77067

== ENCOUNTER 2023-08-14 08:24 | Outpatient (CLI) | payer OTHER, SELFPAY ==
--- NOTE | 2023-08-14 08:15 | DI.RAD_ITS ---
Exam(s) XR WRIST RT COMPL NAVICULAR EXAM: XR WRIST RT COMPL NAVICULAR CLINICAL HISTORY: new pain of R radial wrist, thumb CMC. TECHNIQUE: 2D digital imaging was performed of the right wrist. Four views were obtained. Scaphoid, PA, lateral and oblique views were obtained. COMPARISON: CR XR HAND RT COMPLETE from 06/05/2022 CR XR HAND RT LIMITED from 09/02/2022 FINDINGS: BONES: No acute fracture is present. No bony destructive lesion is seen. Since the prior examination the patient has undergone a resection of the trapezium. JOINTS: The carpal bones are normally aligned. SOFT TISSUE: Normal. IMPRESSION: No acute abnormality. DATA REPOSITORY: RADIATION DOSE DELIVERED:
== END 2023-08-14 08:25 | disposition home or self-care (01) ==
LOC: DIORS 08:24
PROVIDERS: PCP Internal Medicine; Referring Provider Internal Medicine; Visit Provider Student in an Organized Health Care Education/Training Program
DX: M18.11 Unilateral primary osteoarthritis of first carpometacarpal joint, right hand (principal)
CPT/HCPCS: 73110

== ENCOUNTER 2023-08-19 12:06 | Day surgery (SDC) | payer OTHER, SELFPAY ==
--- NOTE | 2023-08-19 11:54 | W.PM.DSUDISC ---
Date of service: 08/19/23 Time of Service: 11:54 Discharge Plan Disposition Patient Disposition: Home Condition: Good Discharge Details Reason For Visit: R ECTR/Wrist injection Attending Provider: Isreal Mclean Primary Care Provider: Sonido Dominguez Home Meds and New Rx's Prescriptions: New acetaminophen 500 mg tablet 1,000 mg PO TID Qty: 90 0RF hydrocodone-acetaminophen 5-325 mg tablet 1 tab PO Q6H PRN (Reason: pain) Qty: 6 0RF ibuprofen 600 mg tablet 600 mg PO TID PRN (Reason: pain) Qty: 90 0RF Continued sertraline 50 mg tablet 50 mg PO DAILY buspirone 7.5 mg tablet 7.5 mg PO DAILY Breztri Aerosphere 160-9-4.8 mcg/actuation HFA aerosol inhaler 2 inh inhalation BID albuterol sulfate [ProAir HFA] 8.5 GM HFA aerosol inhaler 1 gm Inhalation PRN PRN calcium carbonate-vit D3-min 600 mg calcium- 400 unit Tablet 2 tab PO DAILY Discontinued acetaminophen 500 mg tablet 500 mg PO Q6H PRN PRN (Reason: pain) Qty: 60 3RF ibuprofen 600 mg tablet 600 mg PO TID PRN (Reason: pain) Qty: 90 3RF Discharge Instructions Stand Alone Forms: Caridad Piña Tunnel Release Referrals: Isreal Mclean MD [ [facility] STAFF PHYSICIAN] - Activity:: Activity as Tolerated Remove Dressings/Wound Care:: 48 hours Shower/Bathe:: 48 hours Diet:: As Tolerated Discharge Orders Discharge Orders: Discharge Order (Routine); Ordered 08/19/23 Ordered By: Darien Calzada DS: Diagnosis Discharge Diagnosis (1) Acute carpal tunnel syndrome of right wrist: Status: Acute (2) Osteoarthritis of carpometacarpal joint of right thumb: Status: Resolved
[2023-08-19 12:20] VITALS: BP 145/96; PULSE 101; RESP 18; TEMP 36.4; O2SAT 98
[2023-08-19] MEDS: Lactated Ringers 1,000 ML 80 ML IV (12:45)
--- NOTE | 2023-08-19 13:06 | W.ANESPRE ---
General Info Date of Service Date Performed: 08/19/23 Height: 5 ft 2 in Weight: 46.8 kg Body Mass Index (BMI): 18.8 Surgical Procedure: Operation Date: 08/19/23 14:40 Proposed Procedure Side Surgeon p Wrist ECTR Right Isreal Mclean MD s Fluoro Injection, STT Joint Right Isreal Mclean MD Meds Allergies and Home Medications Allergies Allergy/AdvReac Type Severity Reaction Status Date / Time Sulfa (Sulfonamide Allergy Severe rash, Verified 08/19/23 12:29 Antibiotics) lips/tongue swelling Home Medication Medication Instructions Recorded albuterol sulfate 90 mcg/actuation 1 gm inhalation PRN PRN 11/05/13 aerosol inhaler (ProAir HFA) buspirone 7.5 mg tablet 7.5 mg PO DAILY 03/13/20 sertraline 50 mg tablet 50 mg PO DAILY 06/05/22 calcium carb-vit D3-minerals 600 2 tab PO DAILY 09/02/22 mg calcium-400 unit tablet budesonide 160 mcg-glycopyr 9 2 inh inhalation BID 08/14/23 mcg-formot 4.8 mcg/actuation HFA inhaler (Breztri Aerosphere) acetaminophen 500 mg tablet 1,000 mg (2 x 500 mg) PO TID #90 08/19/23 tabs hydrocodone 5 mg-acetaminophen 325 1 tab PO Q6H PRN pain #6 tabs 08/19/23 mg tablet ibuprofen 600 mg tablet 600 mg PO TID PRN pain #90 tabs 08/19/23 Current Visit Medications: Current Medications Generic Name Dose Route Start Last Admin Trade Name Freq PRN Reason Stop Dose Admin Acetaminophen 650 mg 08/19/23 11:53 Acetaminophen 325 Mg Tab PO 09/18/23 11:52 Q4H PRN PRN Hydrocodone Bitart/Acetaminophen 0 tab 08/19/23 11:53 Hydrocodone 5/Acetaminophen 325 Tab PO 09/18/23 11:52 Q3H PRN PRN Pain Ringer's Solution 1,000 mls @ 80 mls/hr 08/19/23 06:00 08/19/23 12:45 IV 09/17/23 23:59 80 mls/hr INFUSION AUGUSTIN Administration Cefazolin Sodium/Dextrose 2 gm in 50 mls @ 100 mls/hr 08/19/23 06:00 Ancef Duplex IVPB 08/19/23 16:00 PREOP AUGUSTIN IV Miscellaneous Supplies 1 each 08/19/23 06:00 Iv Access IV 09/17/23 23:59 DIRECTED AUGUSTIN Sodium Chloride 0 ml 08/19/23 06:00 Normal Saline Flush 10 Ml Syr IV 09/17/23 23:59 PRN PRN Sodium Chloride 0 ml 08/19/23 06:00 Normal Saline 10 Ml Vial IJ 09/17/23 23:59 DIRECTED PRN Sterile Water 0 ml 08/19/23 06:00 Water,Injection,Sterile 10 Ml Vial IJ 09/17/23 23:59 DIRECTED PRN PFSH Active Problems Active Problems: Problem Status Onset Code 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 on no anxiety meds presently Benign hypertension on no meds thought manifestation ofsituational stress Medical History Comments:: Patient reports having nausea and sometimes vomiting day after surgeries. Surgical History Surgical History History of colonoscopy fasciotomy right lateral epicondylitis (08/26/10) Bilateral Ulnar Nerve Transposition (07/08/10) right elbow Laparoscopy, diagnostic Hyseterectomy, Total Laparoscopic w/ BSO with incidental appendectomy Excision, Distal Clavicle R Tobacco Smoking/Tobacco Use Status: Current every day Tobacco Type: cigarettes Smoking cigarettes per day: 10 Alcohol Alcohol Intake: current Alcohol intake frequency: a few times a week Alcohol type: beer Substance Use Substance use: Never Substance use type: does not use Vital Signs and Lab Results Vital Signs Most Recent Vital Signs in EMR: Most Recent Vital Signs Temp Pulse Resp BP Pulse Ox 36.4 C L 101 H 18 145/96 H 98 08/19/23 12:20 08/19/23 12:20 08/19/23 12:20 08/19/23 12:20 08/19/23 12:20 Lab Results Blood Type / Crossmatch: No Data to Display Complete Blood Count: No Data to Display Complete Metabolic Panel: No Data to Display Liver Function Panel: No Data to Display Coagulation Panel: No Data to Display Cardiac Panel: No Data to Display Arterial Blood Gas: No Data to Display Venous Blood Gas: No Data to Display Pancreas Panel: No Data to Display Thyroid Panel: No Data to Display Infectious Disease: No Data to Display Blood Cultures: No Data to Display Toxicology Panel: No Data to Display Anesthesia Assessment and Plan Anesthesia History Personal History: No History of Anesthesia Complications Family History: No Family History of Anesthesia Complications Exercise Tolerance Exercise Tolerance: Metabolic Equivalents>4 Pertinent Negatives Pertinent Negatives: No Symptoms of GERD and No Major Cardiovascular Symptoms or Complaints Cardiac & Pulmonary Exam Cardiac Exam: Normal S1/S2 Heart Sounds Pulmonary Exam: Clear Bilateral Breath Sounds (Distant) Implantable Cardiac Device Does patient have a Pacemaker or an ICD?: No Airway Exam Known Difficult Airway: No Mallampati Class: 1 Mouth Opening: Normal (> 3cm) Thyromental Distance: Less than 3 cm Neck Range of Motion: Full ROM Neck Circumference: Normal Teeth Condition: Removable Dentures/Plates Upper, Removable Dentures/Plates Lower and Edentulous ASA Classification ASA Score: ASA 2 Emergency Case?: No NPO Status NPO Status: NPO Clears >2 hours, Solids >8 hours Anesthesia Plan Resuscitation Status: Full Code Anesthesia Technique: General Anesthesia Airway Planned: Natural Airway Monitors Used: Standard Monitors
[2023-08-19 13:08] VITALS: BMI 18.8
[2023-08-19] MEDS: ceFAZolin 2 GM/50 ML BAG IVPB (14:00)
[2023-08-19] MEDS: Lidocaine 1% Multi-Dose W/EPI 1/100,000 50 ML VIAL (14:10)
[2023-08-19] MEDS: Bupivacaine 0.5% Pres-Free 30 ML VIAL (14:10)
[2023-08-19] MEDS: methylPREDNISolone ACETATE 80 MG/ML VIAL (14:10)
--- NOTE | 2023-08-19 14:20 | DI.RAD_ITS ---
Exam(s) XR WRIST RT LIMITED EXAM: XR WRIST RT LIMITED CLINICAL HISTORY: Unilateral primary osteoarthritis of first CMC. TECHNIQUE: 2D and realtime digital imaging was performed. COMPARISON: CR XR WRIST RT COMPL NAVICULAR from 08/14/2023 FINDINGS: Please see procedure note for details. Fluoro time: 3seconds RADIATION DOSE DELIVERED: Marbinr=0.01 mGy
[2023-08-19 14:28] VITALS: BP 104/65; PULSE 96; RESP 18; TEMP 36.4; O2SAT 96
[2023-08-19 15:00] VITALS: BP 120/73; PULSE 84; RESP 18; TEMP 36.4; O2SAT 18
--- NOTE | 2023-08-19 15:09 | W.ANESPOSTOP ---
Postoperative Evaluation Date, Time and Location Date Performed: 08/19/23 Time Performed: 15:09 Patient Location: Day Surgery Unit Vital Signs Most Recent Imported Vital Signs: Most Recent Vital Signs Temp Pulse Resp BP Pulse Ox 36.4 C L 96 H 18 104/65 96 08/19/23 14:28 08/19/23 14:28 08/19/23 14:28 08/19/23 14:28 08/19/23 14:28 Pain Score Most Recent Pain Score: Most Recent Pain Score Pain Level 0 08/19/23 14:28 Assessment Mental Status: Awake (Alert & Oriented to Patient Baseline) Airway and Respiratory Function: Patent airway with normal (patient baseline) respiratory exam Cardiovascular Function: Hemodynamically Stable Hydration Status: Adequately Hydrated Nausea & Vomiting: No Nausea or Vomiting Pain: Pt. Denies Any Pain Peripheral Nerve Block: Patient did not receive a nerve block
--- NOTE | 2023-08-19 22:44 | ROE_ITS ---
Date of service: 08/19/23 Time of Service: 14:00 Operative Note Operative Note DATE OF PROCEDURE: 08/19/23 PRE-OP DIAGNOSIS: Right Carpal Tunnel Syndrome, Right Scapho-Trapezoid Arthritis POST-OP DIAGNOSIS: same PROCEDURE: Right Endoscopic Carpal Tunnel Release, Fluoroscopicaly Guided Injection of Right ST Joint SURGEON: Isreal Mclean ANESTHESIA TYPE: General:No Airway Refer to Anesthesia Record ESTIMATED BLOOD LOSS: 0 PATHOLOGY: none sent TOURNIQUET TIME: 5 COMPLICATIONS: None Patient was transported to: same day Patient's condition: stable Indications: I have seen Doreen in clinic for symptoms of carpal tunnel syndrome. The numbness, tingling, and pain limited function. Clinical exam findings confirmed the diagnosis of carpal tunnel syndrome. Nonoperative measures such as bracing, time, activity modifications had been tried but disability and pain persisted. I discussed carpal tunnel release with the patient. I reviewed the risks of the procedure to include, but not limited to, bleeding, infection, pain, stiffness, incomplete release, damage to nerves or vessels, persistent numbness, recurrence . She also had new onset pain about the right hand which was thought to be derived from worsening arthritis of the joint between the scaphoid and trapezoid. She has significant aversion against needles and therefore I offered to perform this with fluoroscopic guidance under anesthetic for the carpal tunnel. After reviewing these various details, Doreen elected to proceed. Findings: Using fluoroscopy the space during the scaphoid and trapezoid was injected. For the carpal tunnel, there was tightened carpal tunnel. This was dilated and released successfully with the endoscopic with increased space within the tunnel. The antebrachial fascia was released proximally freeing the median nerve at the wrist. Procedure Description: Doreen was greeted in the preoperative holding area where the correct side was identified and marked. The consent was reviewed with the patient and signed. The history and physical was updated. All questions were answered. She was taken back to the operating room. The patient was placed into the supine position on the operating room table with the right arm on an arm board. All bony prominences were well padded. Prophylactic antibiotics in the form of Cefazolin were administered. A timeout to confirm correct identity, side and site, procedure, allergies, anesthesia, and medical concerns was performed. The fluoroscopic guided injection was performed first. The dorsum of the wrist was prepped ChloraPrep and utilizing a 25-gauge needle I then directed toward the scaphoid trapezoid joint. Fluoroscopy was utilized to identify the needle and its trajectory guiding it into the space between the 2 bones. I was unable to inject 0.5 cc of 0.5% bupivacaine along with 40 mg of Depo-Medrol. Hemostasis was obtained. Attention was then turned to the carpal tunnel procedure. The right arm was then prepped with Chloraprep and draped in a standard fashion with stockinette and extremity drape. The surgical site was marked in the volar wrist creases in line with the radial border of the fourth ray. This area was anesthetized with approximately 6cc of 1% Lidocaine. The limb was then exsanguinated with an Esmarch and an Esmarch tourniquet was used for 5 minutes. The skin was incised with a 15 blade, approximately 1cm. The skin only was cut and the deeper tissue was dissected bluntly with a tenotomy scissor, avoiding passing nerve and venous structures. The fascia was penetrated and opened bluntly. A two-prong skin hook was placed under this proximal fascial edge. A series of hamate finders were used to identify and dilate the carpal tunnel. Synovial elevator was used to free synovial attachments to the underside of the transverse carpal ligament. My thumb was kept in the palm to judd the distal extent of the carpal tunnel and correctly position the hand. The Microaire endoscope was inserted without difficulty and without resistance. Excellent visualization showed horizontally running fibers of the transverse carpal ligament (TCL). The distal extent of the TCL was visualized and the end of the scope palpated with the thumb. The blade was elevated and withdrawn from distal to proximal. The TCL was split into two flaps. The endoscope was reinserted to confirm complete release and any remnant ligament was incised. The scope was withdrawn and the proximal aspect of the carpal tunnel was grossly inspected and appeared release with the median nerve visible. The antebrachial fascia at the level of the wrist was then freed from the overlying skin and then the underlying median nerve with blunt dissection. This was transected longitudinally for about 3cm proximal to the wrist incision. The wound was then irrigated with easy flow of irrigant distally and proximally. The incision was closed with a single 4-0 Nylon suture. The wound was dressed with Xeroform, Gauze, Kerlix and Getachew. The tourniquet was deflated with the initial dressing and held with some pressure. Blood flow returned easily to all digits with capillary refill less than 2 seconds. The patient tolerated the procedure well and was returned to the Same Day Surgery area in a stable condition suffering no known complication.
== END 2023-08-19 12:07 | disposition home or self-care (01) ==
LOC: SUR 12:06
PROVIDERS: PCP Internal Medicine; Visit Provider Student in an Organized Health Care Education/Training Program
PROC: 01N54ZZ Release Median Nerve, Percutaneous Endoscopic Approach (ICD-10-PCS; CPT 29848; principal; 2023-08-19 14:30)
PROC: (CPT 29848; 2023-08-19 14:30)
DX: G56.01 Carpal tunnel syndrome, right upper limb (principal); M19.031 Primary osteoarthritis, right wrist; M18.11 Unilateral primary osteoarthritis of first carpometacarpal joint, right hand
CPT/HCPCS: 29848; 20605; 77002; 76000; 73100; J0690; J1040; J1100; J1885; J2001; J2250; J2405; J2704; J3010

== ENCOUNTER 2023-09-20 08:48 | Inpatient (IN) | payer OTHER, SELFPAY ==
[2023-09-20] VITALS (63 sets, daily range): BP systolic 97–131; BP diastolic 54–92; PULSE 76–115; RESP 5–26; TEMP 36.2–37.4; O2SAT 91–99
--- NOTE | 2023-09-20 08:45 | RT.EKG_ITS ---
APPROVED REPORT Exam: Resting ECG Reason for Exam: sob Patient Location: E HR:103 bpm ECG Measurements Heart Rate 103 AXIS NM 127 P 76 QRSd 78 QRS 90 QT 350 T 58 QTc 458 Conclusion Sinus tachycardia...rate> 99 Normal axis, normal intervals, no STEMI, no STTW changes, no previous for comparison.
--- NOTE | 2023-09-20 09:08 | ED.GENADUL_ITS ---
HPI General Stated Complaint: SOB Mode of arrival: ambulatory. NATHALIE: 2 Date/Time Provider Initiated Documentation: 09/20/23 09:07. Limitations to Documentation: no limitations. Information obtained by: patient and family. HPI Narrative: Time seen was 9:19 AM in bed 4. The patient is a 58-year-old smoker who presents with 7 to 8 days of cold symptoms including headache sore throat shortness of breath and wheezing. The patient has been immunized for COVID has also had a Pneumovax and flu vaccine. She is complaining of cough which is keeping her awake at night it is productive of green sputum and shortness of breath. She does have an albuterol MDI with spacer at home which has not been helping. She has not tested herself at home for COVID and denies any sick contacts. She complains of chest pain with cough and has had subjective fever. Besides taking her inhaler she is also been taking DayQuil and NyQuil without any relief. The last dose was last night. She has no history of immune compromise. Her symptoms are worse with exertion. She is also complaining of left lower rib pain for 4 days. She denies any diarrhea or abdominal pain. She does not use supplemental oxygen at home. Related Data Home Medications Medication Instructions Recorded Confirmed albuterol sulfate 90 mcg/actuation 1 gm inhalation PRN PRN 11/05/13 09/20/23 aerosol inhaler (ProAir HFA) buspirone 7.5 mg tablet 7.5 mg PO DAILY 03/13/20 09/20/23 sertraline 50 mg tablet 50 mg PO DAILY 06/05/22 09/20/23 calcium carb-vit D3-minerals 600 2 tab PO DAILY 09/02/22 09/20/23 mg calcium-400 unit tablet budesonide 160 mcg-glycopyr 9 2 inh inhalation BID 08/14/23 09/20/23 mcg-formot 4.8 mcg/actuation HFA inhaler (Breztri Revegyphere) acetaminophen 500 mg tablet 1,000 mg (2 x 500 mg) PO TID #90 08/19/23 09/20/23 tabs ibuprofen 600 mg tablet 600 mg PO TID PRN pain #90 tabs 08/19/23 09/20/23 Previous Rx's Medication Instructions Recorded acetaminophen 500 mg tablet 1,000 mg (2 x 500 mg) PO TID #90 08/19/23 tabs ibuprofen 600 mg tablet 600 mg PO TID PRN pain #90 tabs 08/19/23 Allergies Allergy/AdvReac Type Severity Reaction Status Date / Time Sulfa (Sulfonamide Allergy Severe rash, Verified 09/20/23 09:04 Antibiotics) lips/tongue swelling Review of Systems Narrative: see hpi PFSH All Active Problems Abdominal pain (Acute) Acute exacerbation of chronic obstructive pulmonary disease (COPD) (Acute) COPD (chronic obstructive pulmonary disease) (Chronic) Acute bronchitis (Acute) Discharge planning issues (Acute) DVT prophylaxis (Acute) Malnutrition (Acute) Tobacco abuse (Acute) Asthma exacerbation (Acute) Acute hypoxemic respiratory failure (Acute) Pneumonia (Acute) Hypoxia (Acute) Acute bronchospasm (Acute) Arthritis of right wrist (Chronic) STT injection: 08/19/23 Acute carpal tunnel syndrome of right wrist (Acute) S/P ECTR: 08/19/2023 Mass of soft tissue of right upper extremity (Acute) Osteophyte of elbow (Acute) Exostosis of right humerus (Acute) S/P excision: 04/02/2020 Mass of finger of right hand (Acute) Right little finger radial PIP Medical History History of anxiety panic attacks some associated with sob. on no anxiety meds presently Benign hypertension on no meds thought manifestation ofsituational stress Surgical History History of colonoscopy x5 fasciotomy right lateral epicondylitis (08/26/10) Bilateral Ulnar Nerve Transposition (07/08/10) right elbow Laparoscopy, diagnostic Hyseterectomy, Total Laparoscopic w/ BSO with incidental appendectomy Excision, Distal Clavicle R Family History Father Colon cancer Other Cancer Diabetes Heart disease Social History Smoking/Tobacco Use Status: Current every day Tobacco Type: cigarettes Smoking packs per day: 0.5 Smoking cigarettes per day: 10.0 Years smoked: 40 Smoking pack-years: 20.00 Tobacco: How many years used: 40 Smoking risk assessment performed?: Yes Alcohol Intake: current Alcohol Intake frequency: a few times a week Alcohol type: beer Drug use: Never Substance use type: does not use Housing: house Do you feel safe at home: Yes Do you feel safe in your relationship?: Yes PAWSS Have you Been Recently Intoxicated or Drunk Within the Last 30 days?: No Have you Ever Experienced Previous Episodes of Alcohol Withdrawal?: No Have you ever Experienced Withdrawal Seizures?: No Have you ever Experienced Delirium Tremens(DT)s?: No Have you ever undergone Alcohol Rehabilitation Treatment (i.e, inpt ot outpatient treatment programs)?: No Have you ever Experienced Blackouts?: No Have you ever Combined Alcohol with other Downers within the last 90 days?: No Have you ever Combined Alcohol with any other Substance of Abuse during the last 90 days?: No Result: 0 Exam Narrative Exam Narrative: The patient is a thin female lying on the stretcher wearing oxygen via NC. She appears mildly dyspniec at rest but is able to speak in short sentences. She is normotensive, tachycardic with a HR of 115. She is tachypneic with a resp rate of 24. Her room air O2 sat is in the upper 80's. she is in the low 90's on 3L of nasal cannula. She appears slightly older than her stated age. Const General: cooperative, healthy appearing, comfortable, no acute distress, well developed, well groomed and well hydrated Nutritional Appearance: thin Orientation: alert, awake and oriented x3 HENMT Head: normal to inspection, normocephalic and atraumatic Ears: hearing grossly normal bilaterally and external ears normal General nose exam: external nose normal, nares normal and no nasal discharge Face and sinus: normal facial exam, sinuses nontender and face symmetric Mouth: oral mucosae normal, lip normal, tongue normal, oropharynx normal, moist mucous membranes and other (Normal phonation. The patient is handling secretions.) Throat: posterior oropharynx normal and uvula midline Other: no stridor, handling secrections. Eyes General: appearance normal, both eyes and all related structures Eyelids: eyelids normal Conjunctivae: conjunctivae normal Sclera: sclerae normal Cornea: corneas normal Pupils: PERRL EOM: EOM intact bilaterally and No nystagmus Neck Neck: normal visual inspection, full ROM, no lymphadenopathy, no meningeal signs, trachea midline, supple and no JVD Lymphatic: no lymphadenopathy noted Chest Other: no retractions, symmetric expansion. No subcutaneous emphysema, no chest wall tenderness Resp Effort & Inspection: able to speak in complete sentences, audible wheezes, no nasal flaring, pursed lip breathing, no segmental paradox chest wall movement, no stridor, tachypneic, no tracheal deviation and no tripod positioning Other: The patient is mildly tachypneic at rest. she has a prolonged expiratory phase. She has end-expiratory wheezes and rhonchi in the left lower lobe.She has decreased air movement bilaterally Cardio Jugular venous pressure: no JVD Palpation: normal PMI Rate: tachycardic Rhythm: regular rhythm Heart Sounds: S1 normal, S2 normal, no gallops, no murmurs and no rubs Pulses: radial pulses present GI Inspection: normal to inspection and non-distended Palpation: soft, no hepatosplenomegaly, no guarding and nontender Percussion: normal to percussion Auscultation: normal bowel sounds General: No CVA tenderness Back/Spine/Pelvis Back: no CVA tenderness and No back tenderness Cervical Spine: normal cervical lordosis, cervical ROM normal, No cervical muscular tenderness, No pain with cervical ROM, No cervical spinal tenderness and No step off deformity Thoracic/Lumbar Spine: thoracic and lumbar spine normal to inspection, No thoracic spinal tenderness and No lumbar spinal tenderness Pelvis: no pain with anterior-posterior compression and no pain with lateral compression Skin General skin exam: no rashes or lesions noted, turgor normal, no petechiae, no purpura and other (Skin is slightly pale for ethnicity.) Lesions: no lesions Rashes: no rashes Trauma: no lacerations or abrasions Neuro General: patient alert, patient awake, patient oriented x3, moves all extremities, no meningeal signs, no focal motor deficits and CN's II-XI intact bilaterally Cranial Nerves: CN's II-XI intact bilaterally, PERRL, accommodation normal, EOM intact bilaterally, no nystagmus, facial strength normal, tongue midline, hearing normal and no nystagmus Cognition: normal cognition Speech: speech normal Motor: muscle tone normal throughout and strength 5/5 throughout Sensory Exam: no sensory deficits noted Extrem General: normal to inspection, full ROM, capillary refill normal, no clubbing, cyanosis or edema and no calf tenderness Other: no meliza's signs or cords. Psych Appearance: grossly normal Affect: normal affect Attitude: cooperative Thought Process: normal Thought Content: normal Insight: insight good Judgment: judgment good Other: The patient appears to have capacity make medical decisions. Course 1:01 PM the patient still has an oxygen requirement. She desats to 91% at rest and still feels short of breath. I have ordered IV antibiotics for the right lower lobe pneumonia and an additional albuterol treatment. I have spoken with Dr. Mckeon about admission. She requested a venous blood gas a urine drug screen and a CTA of the chest. I have ordered those tests and I have updated the patient and her on the plan to admit they voiced understanding agreement with the plan. I have also ordered IV Rocephin and Zithromax. Vital Signs Vital signs: Vital Signs Temperature 37.4 C 09/20/23 08:51 Pulse 115 H 09/20/23 08:51 Respiratory Rate 24 09/20/23 08:51 Blood Pressure 124/71 09/20/23 08:51 Pulse Oximetry 92 09/20/23 08:51 Temperature 37.4 C 09/20/23 09:00 Temperature Source Oral 09/20/23 09:00 Pulse 115 H 09/20/23 09:00 Respiratory Rate 23 09/20/23 09:01 Respiratory Effort Non-Labored, Short of Breath 09/20/23 09:01 Respiratory Depth Normal 09/20/23 09:01 Respiratory Pattern Normal 09/20/23 09:01 Blood Pressure 124/71 09/20/23 09:00 Blood Pressure Position Sitting 09/20/23 09:00 Pulse Oximetry 92 09/20/23 09:00 Oxygen Delivery Method Nasal Cannula 09/20/23 09:00 Oxygen Flow Rate 4 09/20/23 09:00 Pain Level 7 09/20/23 09:00 Medical Decision Making This is a 58 yo old smoker who presents with 7-8 days of a respiratory illness which is gradually worsening. She has been using over the counter medications at home along with her inhalers without improvement. She has tested negative at home for COVID and denies any sick contacts. On exam, on arrival she is hypoxic with a room air sat in the upper 80's and has been placed on supplemental oxygen by the nursing staff. On oxygen she appears comfortable and is not in respiratory distress. She is slightly tachycardic but is normotensive and afebrile. Her lungs reveal a prolongation of her expiratory phase and expiratory wheezing with rhonchi in the LLL, suggesting bronchospasm with possible pneumonia. She does not have rales, JVD or peripheral edema to suggest CHF. Although she has tested negative for COVID at home, she could have had a false neg result or could have another viral process. She could also have an exacerbation of COPD. She has been coughing up green sputum which can be indicative of a viral or bacterial infection. It is possible that she had an initial viral infection, with subsequent bacterial infection causing pneumonia. I will order an IV and hydrate her, because she doese not appear to be in CHF. I will order a nasal swab for COVID, influenza and RSV. I will order a CBC to check for leukocytosis and to rule out anemia as the cause of her shortness of breath. I will check for a left shift. I will check a CMP to evaluate her renal and liver functions as welll as her electrolytes and glucose. I will order a CXR to check for pneumonia. I do not think that she has a PE, since she has no significant risk factors such as recent surgeries, cancer, or long trips or immobilization and does not have any pleurtic chest pain or unilateral leg swelling or pain. I will order IV solumedrol and 3 duonebs. If she conitnues to have an oxygen requirement despite maximum therapy [facility]. If her CXR demonstates pneumonia, we will treat her with abx, avoiding sulfanamides because of her allergies. The patient and her voice understanding with this plan. An EKG has been obtained and I have reviewed. It does not demonstrate any evidence of STEMI or of cardiac ischemia. We will check cardiac enzymes to rule out NSTEMI. Differential Diagnosis Differential Diagnosis: hypoxia, viral pneumonia, bacterial pneumonia, copd exacerbation Medical Records Medical records reviewed: Yes I reviewed the patient's medical records. Imaging Data Radiologic Study: Imaging: X-Ray (CXR) Radiologist's impression: vRad Impression: 1. Suggestion of slight vague underlying interstitial prominence, reticular pattern, possible bronchial wall thickening. Patchy opacity lower medial right lung base, right cardiophrenic angle. Possible mild hyperinflation. Correlate for bronchitis, reactive airways, history of smoking, or other process, with possible inflammation/pneumonitis, pneumonia. 2. Blunting right lateral costophrenic angle suggesting small right pleural effusion and/or pleural thickening. Radiologic Study #2: Imaging: CT Scan (CTA rule out PE) Radiologist's impression: vRad Impression: 1. No evidence of pulmonary embolus. 2. Small airways disease. Acute bronchitis can be considered in the proper clinical setting. 3. Mild emphysema. 4. Partially visualized inflammatory changes adjacent to the splenic flexure. This can be secondary to a nonspecific colitis. Follow-up exam can be obtained as clinically indicated ECG Data Attestation: I personally reviewed and interpreted this ECG (s) as follows: Prior ECG tracings: available for review Quality:SDOH Health Related Social Needs: No Data to Display Critical Care Time Critical Care Time Total Critical Care Time: 58 Attestation: This includes time at the bedside, including several re-evaluations, review and interpretation of EKG, labs and radiographs, consultation with hospitalist, review of old records. Discharge Plan Disposition Patient Disposition: Admit to [facility] Condition: Stable Discharge Details Clinical Impression: Acute bronchospasm, Hypoxia, Pneumonia Admit Date/Time: 09/20/23 13:10 Admit Provider: Meryl Mckeon Attending Provider: Meryl Mckeon Primary Care Provider: Katy Clancy ED Provider: Lilo Gonzalez Discharge Data Discharge Date/Time-TO BE ENTERED AT DEPARTURE: 09/20/23 14:24 Discharge Physician: Lilo Gonzalez
--- NOTE | 2023-09-20 09:15 | DI.RAD_ITS ---
Exam(s) XR CHEST 2V PA LATERAL EXAM: XR CHEST 2V PA LATERAL CLINICAL HISTORY: hypoxic TECHNIQUE: 2D digital imaging was performed of the chest. Two images were obtained. PA and lateral views were obtained. COMPARISON: There are no priors for comparison. FINDINGS: MEDIASTINUM: Normal. HEART: Normal. PULMONARY VASCULATURE: Normal. LUNGS: There is diffuse interstitial prominence. There also is a small infiltrate in the medial aspe ct of the right lower lobe. The lungs are hyperinflated. There is bronchial wall thickening present . PLEURAL SPACE: No pleural effusion or pneumothorax. BONE:Within normal limits for the patient's age. There are old healed right rib fracture deformities . OTHER FINDINGS:Normal. IMPRESSION: 1. Diffuse interstitial disease. Differential considerations include pneumonia, reactive airways dis ease or bronchitis. DATA REPOSITORY: RADIATION DOSE DELIVERED:
[2023-09-20 09:39] LABS: Lactate 1.1 mmol/L (0.6-1.4)
[2023-09-20 09:42] LABS: Abs Immature Grans 0.06 10^3/uL (0.0-0.06); Absolute Basophil Count 0.11 10^3/uL (0.0-0.2); Absolute Eosinophil Count 0.02 10^3/uL (0.0-0.7); Absolute Lymphocyte Count 0.78 10^3/uL (1.2-3.4); Absolute Neutrophil Count 9.22 10^3/uL (1.2-6.7); Basophils % 0.9; Eosinophils % 0.2; HCT 40.9 % (36.0-46.0); HGB 14.3 g/dL (11.2-15.7); Immature Grans % 0.5; Lymphocytes % 6.5; MCH 35.5 pg (27.0-33.0); MCV 102 fL (80-95); MPV 9.8 fL (8.0-11.0); Monocytes % 14.7; Neutrophils % 77.2; Platelet Count 259 10^3/uL (130-400); RBC 4.03 10^6/uL (3.93-5.22); RDW 11.6 % (11.7-14.6); RDW-SD 43.9 fL; WBC 11.94 10^3/uL (4.4-10.8)
[2023-09-20 09:43] LABS: COVID-19 PCR Negative (Negative); Influenza A PCR Negative (Negative); Influenza B PCR Negative (Negative); RSV PCR Negative (Negative)
[2023-09-20 09:43] LABS: Absolute Monocyte Count 1.76 10^3/uL (0.1-0.8)
[2023-09-20] MEDS: Acetaminophen 500 MG TAB 1000 MG PO ×3 (09:46→20:00)
[2023-09-20] MEDS: methylPREDNISolone SUCC 125 MG VIAL 60 MG IVP ×2 (09:46→13:33)
[2023-09-20] MEDS: Albuterol/Ipratropium 3 ML UPD VIAL UPD (09:46)
[2023-09-20] MEDS: Normal Saline 1,000 ML 1000 ML IV (09:46)
[2023-09-20 09:49] LABS: Source Nasopharynx
[2023-09-20 09:57] LABS: ALT 21 U/L (14-59); AST 14 U/L (15-37); Albumin 3.2 g/dL (3.4-5.0); Alkaline Phosphatase 106 U/L (46-116); Anion Gap 11.2 mmol/L (3-11); BUN 9 mg/dL (7-18); Bilirubin, Total 0.6 mg/dL (0.2-1.0); CO2 28.8 mmol/L (21.0-32.0); CREATININE 0.6 mg/dL (0.55-1.02); Calcium 9.6 mg/dL (8.5-10.1); Chloride 98 mmol/L (98-107); Estimated GFR 103.98 (mL/min/1.73m2); Glucose 122 mg/dL (74-106); Potassium 3.5 mmol/L (3.5-5.1); Sodium 138 mmol/L (136-145); Total Protein 7.9 g/dL (6.4-8.2)
[2023-09-20 10:07] LABS: Diff Comment Agrees w/ Instrument; RBC Morphology Normal
[2023-09-20 10:14] LABS: Procalcitonin 0.4 ng/mL
--- NOTE | 2023-09-20 11:09 | DI.VRAD_ITS ---
PROCEDURE INFORMATION: Exam: XR Chest Exam date and time: 09/20/2023 10:43 AM Age: 58 years old Clinical indication: Other: Hypoxic TECHNIQUE: Imaging protocol: Radiologic exam of the chest. Views: 2 views. COMPARISON: MR UPPER JOINT RT WO 08/08/2022 8:28 AM FINDINGS: Lungs: Suggestion of slight vague underlying interstitial prominence, reticular pattern, possible bronchial wall thickening. Patchy opacity lower medial right lung base, right cardiophrenic angle. Possible mild hyperinflation. Pleural spaces: Blunting right lateral costophrenic angle suggesting small right pleural effusion and/or pleural thickening. No pneumothorax seen. Heart/Mediastinum: Heart size appears within normal. Bones/joints: Degenerative changes spine. Prior right rib fractures. IMPRESSION: 1. Suggestion of slight vague underlying interstitial prominence, reticular pattern, possible bronchial wall thickening. Patchy opacity lower medial right lung base, right cardiophrenic angle. Possible mild hyperinflation. Correlate for bronchitis, reactive airways, history of smoking, or other process, with possible inflammation/pneumonitis, pneumonia. 2. Blunting right lateral costophrenic angle suggesting small right pleural effusion and/or pleural thickening. Dictated and Authenticated by: Oscar Choi MD. Ordering:KAREN Nagy MD
[2023-09-20] MEDS: cefTRIAXone 1 GM/50 ML BAG 50 GM (12:43)
--- NOTE | 2023-09-20 12:45 | DI.CT_ITS ---
Exam(s) CT CHEST PE CTA EXAM: CT CHEST PE CTA CLINICAL HISTORY: rule out PE. TECHNIQUE: Imaging Protocol: Axial CT angiography was performed with multi-slice acquisition and mu lti-planar and/or 3D reconstructions. CONTRAST MATERIAL: Intravenous: Omnipaque 350 contrast volume:60 mL COMPARISON: CR,XR XR CHEST 2V PA LATERAL from 09/20/2023 FINDINGS: Tracheobronchial tree: Patent where visualized. Pulmonary parenchyma: There is a small infiltrate in the right middle lobe. Mild paraseptal emphysem atous changes. There is small airway wall thickening seen in the lungs. Pulmonary Arteries: No evidence of filling defect to suggest pulmonary emboli. Mediastinum and Krystal: No dominant adenopathy or fluid collection. The esophagus is unremarkable. Visualized thyroid gland: Unremarkable. Pleura: No effusion or pneumothorax. Heart: The heart is not dilated. No coronary artery calcifications are seen. No pericardial effusion. Aorta: Thoracic aorta non-dilated. No evidence of dissection. Atherosclerosis. Upper abdomen: There is bowel wall thickening and pericolonic phlegm a sandy changes in the splenic f lexure. There does appear to be a single diverticulum associated with the splenic flexure and acute diverticulitis cannot be excluded. Soft tissues: Unremarkable. Bones: Within normal limits for the patient's age.Old healed rib fractures. IMPRESSION: 1. No evidence of pulmonary embolism, thoracic aortic dissection or aneurysm. 2. Small infiltrate in the medial aspect of the right middle lobe. This may represent atelectasis or pneumonia. 3. Small airways disease. Consider acute bronchitis. 4. The splenic fracture shows mild bowel wall thickening and pericolonic inflammatory changes. This may represent colitis. There is a question of a single diverticulum and diverticulitis cannot be exc luded. RADIATION DOSE DELIVERED: 259.48mGy.cm Total DLP DATA REPOSITORY: All CT scans at this facility are submitted to the National Radiology Data Registry (NRDR) Dose Index Registry (DIR) with the [employer] ([employer]). RADIATION OPTIMIZATION: All CT scans at this facility use at least one of these dose optimization te chniques: automated exposure control; mA and/or kV adjustment per patient size (includes targeted exa ms where dose is matched to clinical indication); or iterative reconstruction.
[2023-09-20] MEDS: Azithromycin 250 MG TAB 500 MG PO (12:51)
[2023-09-20] MEDS: Albuterol 2.5 MG/3 ML INH SOLN VIAL UPD (12:51)
[2023-09-20 13:09] LABS: BE (Venous) 1 mmol/L (-2-3); HCO3 (Venous) 26 mmol/L (23-28); O2 Sat (Venous) 85 %; TCO2 (Venous) 24 mmol/L (24-29); pCO2 (Venous) 45 mmHg (41-51); pH (Venous) 7.37 (7.31-7.41); pO2 (Venous) 49 mmHg
--- NOTE | 2023-09-20 14:02 | W.PM.HP.N ---
Date of service: 09/20/23 Time of Service: 14:02 Assessment and Plan Assessment and plan (1) Acute hypoxemic respiratory failure: Status: Acute Assessment and plan: Due to asthma exacerbation/acute bronchitis. After initial admission to the ICU, due to the rapid improvement in patient's condition, she is being transferred to the medical surgical floor. Treat with systemic steroids, nebs, antibiotics. Obtain a sputum culture. Obtain pneumonia studies. Encourage pulmonary toilet. Given purulent sputum production and elevated procalcitonin, there is a role for abx. (2) Acute exacerbation of chronic obstructive pulmonary disease (COPD): Status: Acute Assessment and plan: Due to acute bronchitis +/- PNA. As above (3) Acute bronchitis: Status: Acute Assessment and plan: +/- RML PNA vs atelectasis As above (4) Tobacco abuse: Status: Acute Assessment and plan: Counseling Provide nicotine replacement (5) Malnutrition: Status: Acute Assessment and plan: C/s nutrition Also, obtain HIV serology (6) Atrial flutter by electrocardiogram: Status: Suspected Assessment and plan: repeat EKG. Cardiac monitoring. If confirmed, would benefit from an echocardiogram. (7) Abdominal pain: Status: Acute Assessment and plan: Likely musculoskeletal, due to coughing. However, if the pain is persistent tomorrow and is severe, would scan abdomen. The patient does have a family history of colon cancer (father) and is up-to-date on her colonoscopy. No change to bowel habits described. (8) DVT prophylaxis: Status: Acute Assessment and plan: SC lovenox (9) Discharge planning issues: Status: Acute Assessment and plan: INitially admitted to the ICU, but is being transferred to the medical surgical floor. Full code, as discussed with the patient. History of Present Illness History of Present Illness Chief Complaint: Shortness of breath Narrative: Mr Mejia is a 58 year old female with PMHx of non-oxygen dependent COPD, hypertension, anxiety, tobacco abuse, who presented to [facility] ED c/o 1 week of SOB as well as cough productive of green sputum. It all started with a sensation of chest fullness, subjective fevers, headache, runny nose, sore throat, wheezing. The cough has made her LLQ hurt, but only when she is coughing. Endorses some nausea (because she was made NPO). Her albuterol MDI has not provided relief at home. Denies CP and dizziness. Her resting O2 sats on RA were in the 70s, per report, and she required 4L of O2 by NC to saturate in the 90s. Her CXR showed diffuse interstitial disease: PNA vs reactive airways disease vs bronchitis. She tested negative for influenza, covid-19, and RSV. Her procalcitonin was borderline elevated. She was treated with IV methylprednisolone, nebs, and empiric ceftriaxone/azithromycin. CTA of the chest shows reactive airways disease, acute bronchitis and a question of RML pneumonia. There is no evidence of an acute PE. Hospitalist admission was requested. She was admitted to the ICU. Since arrival here, she has only required 2L of O2, however, so she is being downgraded to the medical surgical floor. While there is a diagnosis of asthma in the computer, she says that was once given to her by the ER provider and that her PCP has since told her that it's not asthma but COPD. She has not had formal pulmonary function testing that she can recall. Review of Systems All systems reviewed & are unremarkable except as noted in HPI and below PFSH All Active Problems Abdominal pain (Acute) Acute exacerbation of chronic obstructive pulmonary disease (COPD) (Acute) COPD (chronic obstructive pulmonary disease) (Chronic) Acute bronchitis (Acute) Discharge planning issues (Acute) DVT prophylaxis (Acute) Malnutrition (Acute) Tobacco abuse (Acute) Asthma exacerbation (Acute) Acute hypoxemic respiratory failure (Acute) Pneumonia (Acute) Hypoxia (Acute) Acute bronchospasm (Acute) Arthritis of right wrist (Chronic) STT injection: 08/19/23 Acute carpal tunnel syndrome of right wrist (Acute) S/P ECTR: 08/19/2023 Mass of soft tissue of right upper extremity (Acute) Osteophyte of elbow (Acute) Exostosis of right humerus (Acute) S/P excision: 04/02/2020 Mass of finger of right hand (Acute) Right little finger radial PIP Medical History History of anxiety panic attacks some associated with sob. on no anxiety meds presently Benign hypertension on no meds thought manifestation ofsituational stress Surgical History History of colonoscopy x5 fasciotomy right lateral epicondylitis (08/26/10) Bilateral Ulnar Nerve Transposition (07/08/10) right elbow Laparoscopy, diagnostic Hyseterectomy, Total Laparoscopic w/ BSO with incidental appendectomy Excision, Distal Clavicle R Family History (Updated 09/20/23 @ 16:12 by Meryl Mckeon MD) Father Colon cancer Other Cancer Diabetes Heart disease Social History Smoking/Tobacco Use Status: Current every day Tobacco Type: cigarettes Tobacco: How many years used: 30 Smoking risk assessment performed?: Yes Alcohol Intake: current Alcohol Intake frequency: a few times a week Alcohol type: beer Drug use: Never Substance use type: does not use Housing: house Do you feel safe at home: Yes Do you feel safe in your relationship?: Yes Meds Allergies and Home Medications Allergies Allergy/AdvReac Type Severity Reaction Status Date / Time Sulfa (Sulfonamide Allergy Severe rash, Verified 09/20/23 09:04 Antibiotics) lips/tongue swelling Home Medications Medication Instructions Recorded Confirmed Type albuterol sulfate 90 mcg/actuation 1 gm inhalation PRN PRN 11/05/13 09/20/23 History aerosol inhaler (ProAir HFA) buspirone 7.5 mg tablet 7.5 mg PO DAILY 03/13/20 09/20/23 History sertraline 50 mg tablet 50 mg PO DAILY 06/05/22 09/20/23 History calcium carb-vit D3-minerals 600 2 tab PO DAILY 09/02/22 09/20/23 History mg calcium-400 unit tablet budesonide 160 mcg-glycopyr 9 2 inh inhalation BID 08/14/23 09/20/23 History mcg-formot 4.8 mcg/actuation HFA inhaler (Breztri Aerosphere) acetaminophen 500 mg tablet 1,000 mg (2 x 500 mg) PO TID #90 08/19/23 09/20/23 Rx tabs ibuprofen 600 mg tablet 600 mg PO TID PRN pain #90 tabs 08/19/23 09/20/23 Rx Exam Narrative Exam Narrative: General: A very pleasant middle-aged female who is on 2L of O2 by NC, A&Ox3, appears comfortable laying flat in bed Neurological: A&Ox3, no focal deficits Psychiatric: Appropriate speech pattern/content Skin: Visible skin intact HEENT: Atraumatic, normocephalic, EOMI, dry MM, + thrush, no submandibular or cervical lymphadenopathy, no goiter or JVD Cardiovascular: RRR, no m/r/g Lungs: Expiratory wheezing B Gastrointestinal: soft, tender in LLQ, nondistended Genitourinary: deferred Extremities: no edema BLEs, 1+ pedalp pulses B Results Imaging Imaging Studies: CXR: 1. Diffuse interstitial disease. Differential considerations include pneumonia, reactive airways disease or bronchitis. CTA chest: 1. No evidence of pulmonary embolism, thoracic aortic dissection or aneurysm. 2. Small infiltrate in the medial aspect of the right middle lobe. This may represent atelectasis or pneumonia. 3. Small airways disease. Consider acute bronchitis. 4. The splenic fracture shows mild bowel wall thickening and pericolonic inflammatory changes. This may represent colitis. There is a question of a single diverticulum and diverticulitis cannot be excluded. EKG: ST w/ a tremor vs atrial flutter, HR 103, no acute ischemia Labs 09/20/23 09:15 09/20/23 09:15 Labs: Laboratory Results - last 24 hr 09/20/23 09/20/23 09/20/23 08:57 09:15 13:05 WBC 11.94 H RBC 4.03 Hgb 14.3 Hct 40.9 MCV 102 H MCH 35.5 H MCHC 35.0 RDW 11.6 L Plt Count 259 MPV 9.8 Immature Gran % 0.5 Neutrophils % 77.2 Lymphocytes % 6.5 Monocytes % 14.7 Eosinophils % 0.2 Basophils % 0.9 Nucleated RBC % 0.0 Absolute Neutrophils 9.22 H Absolute Lymphocytes 0.78 L Absolute Monocytes 1.76 H Absolute Eosinophils 0.02 Absolute Basophils 0.11 RBC Morphology Normal VBG pH 7.37 VBG pCO2 45 VBG pO2 49 VBG HCO3 26 VBG Total CO2 24 VBG O2 Saturation 85 VBG Base Excess 1 VBG Lactate 1.1 Sodium 138 Potassium 3.5 Chloride 98 Carbon Dioxide 28.8 Anion Gap 11.2 H BUN 9 Creatinine 0.6 Est GFR (CKD-EPI 2020) 103.98 Glucose 122 H Calcium 9.6 Total Bilirubin 0.6 AST 14 L ALT 21 Alkaline Phosphatase 106 Total Protein 7.9 Albumin 3.2 L Procalcitonin 0.4 COVID-19 Source Nasopharynx SARS-CoV-2 (PCR) Negative Influenza Type A (PCR) Negative Influenza Type B (PCR) Negative RSV (PCR) Negative Last Vital Signs Temp 37.4 C 09/20/23 09:00 Pulse 82 09/20/23 13:15 Resp 15 09/20/23 13:20 BP 98/54 L 09/20/23 13:15 Pulse Ox 96 09/20/23 13:20 PAWSS Have you Been Recently Intoxicated or Drunk Within the Last 30 days?: No Have you Ever Experienced Previous Episodes of Alcohol Withdrawal?: No Have you ever Experienced Withdrawal Seizures?: No Have you ever Experienced Delirium Tremens(DT)s?: No Have you ever undergone Alcohol Rehabilitation Treatment (i.e, inpt ot outpatient treatment programs)?: No Have you ever Experienced Blackouts?: No Have you ever Combined Alcohol with other Downers within the last 90 days?: No Have you ever Combined Alcohol with any other Substance of Abuse during the last 90 days?: No Result: 0 Time Spent Time spent with Patient: 55-74 minutes Time was spent: preparing to see the patient(eg.review tests), obtaining and/or reviewing separately otained hiistory, ordering medications,tests, procedures, referring, communicating with other health senior caregiver, indepentently interpreting results, counseling the patient and care coordination
[2023-09-20] MEDS: Omnipaque 350 MG/ML 100 ML BTL IJ (14:13)
--- NOTE | 2023-09-20 14:16 | W.PC.ACHO ---
Registration Status: REG ER Primary Language: Preferred Language: Sinhala ED Information & Data Chief Complaint SOB 09/20/23 09:34 Triage Note Resp for 1 week, SOB, 09/20/23 08:51 coughing up thick green phelgm Medical / Surgical History (Last Reviewed 08/18/23 @ 11:52 by Dusty Gentile) Asthma History of anxiety Benign hypertension (Last Reviewed 08/18/23 @ 11:52 by Dusty Gentile) History of colonoscopy fasciotomy right lateral epicondylitis (08/26/10) Ulnar Nerve Transposition (07/08/10) Laparoscopy, diagnostic Hyseterectomy, Total Laparoscopic w/ BSO Excision, Distal Clavicle Most Recent Vital Signs Temperature 37.4 C 09/20/23 09:00 Temperature Source Oral 09/20/23 09:00 Pulse 82 09/20/23 13:15 Pulse 86 09/20/23 13:20 Respiratory Rate 15 09/20/23 13:20 Respiratory Effort Non-Labored, Short of Breath 09/20/23 09:01 Respiratory Depth Normal 09/20/23 09:01 Respiratory Pattern Normal 09/20/23 09:01 Blood Pressure 98/54 L 09/20/23 13:15 Blood Pressure Mean 69 09/20/23 13:15 Blood Pressure Position Sitting 09/20/23 09:00 Pulse Oximetry 96 09/20/23 13:20 Oxygen Delivery Method Nasal Cannula 09/20/23 09:46 Oxygen Flow Rate 4 09/20/23 09:46 Pain Level 7 09/20/23 09:00 Allergies Sulfa (Sulfonamide Antibiotics) Allergy (Severe, Verified 09/20/23 09:04) rash, lips/tongue swelling Precautions Isolation Standard precaution 09/20/23 09:00 Active Medications Generic Name Dose Route Start Last Admin Trade Name Freq PRN Reason Stop Dose Admin Ceftriaxone Sodium 1,000 mg/ 50 mls @ 100 mls/hr 09/20/23 12:45 09/20/23 12:44 Sodium Chloride IVPB Not Given Q24H AUGUSTIN IV IV Catheter Type [Left Saline Lock Antecubital] IV Catheter Gauge [Left 18 Antecubital] Diet Orders Category Date Time Status Nothing Per Oral [DIET] Nutrition 09/20/23 Lunch Active Diagnostics 09/20/23 09/20/23 09/20/23 Range/Units 13:05 09:15 08:57 WBC 11.94 H (4.4-10.8) 10^3/uL RBC 4.03 (3.93-5.22) 10^6/uL Hgb 14.3 (11.2-15.7) g/dL Hct 40.9 (36.0-46.0) % MCV 102 H (80-95) fL MCH 35.5 H (27.0-33.0) pg MCHC 35.0 (32.0-36.0) % RDW 11.6 L (11.7-14.6) % Plt Count 259 (130-400) 10^3/uL MPV 9.8 (8.0-11.0) fL Immature Gran % 0.5 Neutrophils % 77.2 Lymphocytes % 6.5 Monocytes % 14.7 Eosinophils % 0.2 Basophils % 0.9 Nucleated RBC % 0.0 (0.0-0.3) % Absolute Neutrophils 9.22 H (1.2-6.7) 10^3/uL Absolute Lymphocytes 0.78 L (1.2-3.4) 10^3/uL Absolute Monocytes 1.76 H (0.1-0.8) 10^3/uL Absolute Eosinophils 0.02 (0.0-0.7) 10^3/uL Absolute Basophils 0.11 (0.0-0.2) 10^3/uL RBC Morphology Normal VBG pH 7.37 (7.31-7.41) VBG pCO2 45 (41-51) mmHg VBG pO2 49 mmHg VBG HCO3 26 (23-28) mmol/L VBG Total CO2 24 (24-29) mmol/L VBG O2 Saturation 85 % VBG Base Excess 1 (-2-3) mmol/L VBG Lactate 1.1 (0.6-1.4) mmol/L Sodium 138 (136-145) mmol/L Potassium 3.5 (3.5-5.1) mmol/L Chloride 98 (98-107) mmol/L Carbon Dioxide 28.8 (21.0-32.0) mmol/L Anion Gap 11.2 H (3-11) mmol/L BUN 9 (7-18) mg/dL Creatinine 0.6 (0.55-1.02) mg/dL Est GFR (CKD-EPI 2020) 103.98 (mL/min/1.73m2) Glucose 122 H (74-106) mg/dL Calcium 9.6 (8.5-10.1) mg/dL Total Bilirubin 0.6 (0.2-1.0) mg/dL AST 14 L (15-37) U/L ALT 21 (14-59) U/L Alkaline Phosphatase 106 (46-116) U/L Total Protein 7.9 (6.4-8.2) g/dL Albumin 3.2 L (3.4-5.0) g/dL Procalcitonin 0.4 ng/mL COVID-19 Source Nasopharynx SARS-CoV-2 (PCR) Negative (Negative) Influenza Type A (PCR) Negative (Negative) Influenza Type B (PCR) Negative (Negative) RSV (PCR) Negative (Negative) 09/20/23 10:30 Blood Culture - Pending Blood 09/20/23 09:15 Blood Culture - Pending Blood Intake and Output - 24 Hour Total 09/20/23 08:48 thru 09/20/23 10:46 Intake Total 1010 Balance 1010 Weight 47.627 kg Intake: IV 1010 Falls Risk Assessment History of Falls No History 09/20/23 09:02 Contributing Factors No Factors 09/20/23 09:02 Ambulatory Aids Independent 09/20/23 09:02 Tubes/Lines W/no contributing factors 09/20/23 09:02 Gait Evaluation No gait disturbance 09/20/23 09:02 Cognition No cognitive impairment 09/20/23 09:02 Fall Total Score 10 09/20/23 09:02 Level of Risk Standard/Low Risk 09/20/23 09:02 Problems (Last Reviewed 08/18/23 @ 11:52 by Dusty Gentile) Pneumonia (Acute) Hypoxia (Acute) Acute bronchospasm (Acute) v v v v v v v v v Sending and/or Receiving Nurses: Please use comment section below to note any information pertinent to the patient hand-off not included above. Information / Comments: Report received from: Megan Singh RN
[2023-09-20] MEDS: Normal Saline - Diluent 50 ML VIAL IV (14:17)
--- NOTE | 2023-09-20 14:32 | DI.VRAD_ITS ---
PROCEDURE INFORMATION: Exam: CTA Chest With Contrast Exam date and time: 09/20/2023 1:31 PM Age: 58 years old Clinical indication: Other: Rule out pe TECHNIQUE: Imaging protocol: Computed tomographic angiography of the chest with contrast. Exam focused on the arteries. 3D rendering (Not supervised by radiologist): MIP and/or 3D reconstructed images were created by the technologist. Radiation optimization: All CT scans at this facility use at least one of these dose optimization techniques: automated exposure control; mA and/or kV adjustment per patient size (includes targeted exams where dose is matched to clinical indication); or iterative reconstruction. Contrast material: OMNIPAQUE 350; Contrast volume: 60 ml; Contrast route: INTRAVENOUS (IV); COMPARISON: CR XR CHEST 2V PA LATERAL 09/20/2023 10:43 AM FINDINGS: Pulmonary arteries: No evidence of pulmonary embolus. Aorta: Unremarkable. No aortic aneurysm. No aortic dissection. Trachea: Small airway wall thickening. Focal cylindrical bronchiectasis in the superior segment of the right lower lobe. Lungs: Mild paraseptal emphysematous changes. Subsegmental atelectasis in the medial segment of the right middle lobe. Pleural spaces: No pleural effusion. Heart: Unremarkable. No cardiomegaly. No pericardial effusion. Lymph nodes: Unremarkable. No enlarged lymph nodes. Stomach and bowel: Only partially visualized is stranding of the fat adjacent to the splenic flexure. There is a diverticulum within the splenic flexure. Bones/joints: Unremarkable. No acute fracture. Soft tissues: Unremarkable. IMPRESSION: 1. No evidence of pulmonary embolus. 2. Small airways disease. Acute bronchitis can be considered in the proper clinical setting. 3. Mild emphysema. 4. Partially visualized inflammatory changes adjacent to the splenic flexure. This can be secondary to a nonspecific colitis. Follow-up exam can be obtained as clinically indicated Dictated and Authenticated by: Brenden Mejia MD. Ordering:KAREN Nagy MD
[2023-09-20 15:12] LABS: *AMPHETAMINES SCREEN URINE Negative (Negative); *BARBITURATES SCREEN URINE Negative (Negative); *BENZODIAZEPINES SCREEN URINE Negative (Negative); Cannabinoids THC Negative (Negative); Cocaine Screen,Urine Negative (Negative); METHADONE URINE SCREEN Negative (Negative); OPIATES URINE SCREEN Negative (Negative)
[2023-09-20 15:23] LABS: Tricyclic Antidepressants Negative (Negative)
--- NOTE | 2023-09-20 15:45 | RT.EKG_ITS ---
APPROVED REPORT Exam: Resting ECG Reason for Exam: ?Atrial flutter Patient Location: I HR:78 bpm ECG Measurements Heart Rate 78 AXIS WY 137 P 85 QRSd 84 QRS 87 QT 420 T 73 QTc 479 Conclusion Sinus rhythm...normal P axis, V-rate 50- 99 Nonspecific T abnrm, anterolateral leads...T <-0.10mV, I aVL V2-V6 I have reviewed and interpreted ECG and agree with software generated interpretation.
--- NOTE | 2023-09-20 16:37 | RESPIRATORY ---
RT Assessment Start: 09/20/23 15:57 Freq: .q shift and prn Status: Active Protocol: Document 09/20/23 16:28 (Rec: 09/20/23 16:36 [id number]) RT Assessment Pulmonary History Pulmonary History COPD Smoking History Smoking/Tobacco Use Status Current every day Tobacco: How many years used 40 Tobacco Type cigarettes Cigarettes per Day 10 Years smoked 40 Smoking packs per day 0.5 OXYGEN HISTORY: Supplemental O2 At Rest 0 With Exertion 0 CPAP Can use home machine N/A BIPAP Can you home machine N/A Trilogy/AVAPS Can use home machine N/A DME/Compliance DME N/A Compliance N/A Current Respiratory Symptoms Current Respiratory Symptoms Cough,Shortness of breath, Sputum production Activity Activity Level Pt does own housework, walks her dog 3-4x a day, gardens in summer. Respiratory Breath Sounds Breath Sounds Faint wheezing or rhonci, decreased sounds throughout Response Mild response,subjective improvement Pulse Rate <100 Respiratory Rate 18-25 Shortness of Breath On exertion Respiratory Therapy Score Total 5 Assessment and Plan RT Treatment Protocol Bronchodilator Aerosol Therapy Protocol,Lung Expansion Therapy Protocol,Bronchial Hygiene Therapy Protocol Note Pt has Mild score of 5. Continue home maintenance medications, and PRN nebulizers. If PRN nebs not used in the next 48 hours, able to D/C them and reassess pt score. Pt has been given and instructed on IS and acapella devices. Encouraged pt to be active in room. Currently on 2L O2, pt does not use O2 at this time, wean as tolerated and able.
[2023-09-20] MEDS: guaiFENesin 600 MG TABCR PO ×2 (16:49→20:00)
[2023-09-20] MEDS: DOXYCYCLINE 100 MG in Normal Saline 100 ML IVPB (17:31)
[2023-09-20] MEDS: Nystatin 500000 UNITS/5 ML SUSP 5ML CUP PO ×2 (17:32→21:17)
[2023-09-20] MEDS: Enoxaparin 40 MG/0.4 ML SYR SC (17:32)
[2023-09-20] MEDS: Benzonatate 200 MG CAP PO (20:00)
[2023-09-20] MEDS: Normal Saline Flush 10 ML SYR IVP (20:02)
[2023-09-20] MEDS: Sertraline 50 MG TAB PO (20:03)
[2023-09-21] VITALS (16 sets, daily range): BP systolic 109–132; BP diastolic 62–85; PULSE 71–96; RESP 5–25; TEMP 36.1–36.6; O2SAT 88–96
[2023-09-21] MEDS: Albuterol/Ipratropium 3 ML UPD VIAL UPD (02:28)
[2023-09-21] MEDS: DOXYCYCLINE 100 MG in Normal Saline 100 ML IVPB ×2 (05:35→18:43)
[2023-09-21] MEDS: Nystatin 500000 UNITS/5 ML SUSP 5ML CUP PO ×5 (05:44→22:21)
[2023-09-21 07:03] LABS: Absolute Basophil Count 0.07 10^3/uL (0.0-0.2); Absolute Neutrophil Count 10.27 10^3/uL (1.2-6.7); Basophils % 0.6; HCT 39.4 % (36.0-46.0); HGB 13.6 g/dL (11.2-15.7); Immature Grans % 0.8; Lymphocytes % 4.2; MCHC 34.5 % (32.0-36.0); MCV 104 fL (80-95); MPV 10.7 fL (8.0-11.0); Monocytes % 9.1; Neutrophils % 85.3; Platelet Count 262 10^3/uL (130-400); RBC 3.78 10^6/uL (3.93-5.22); RDW 11.5 % (11.7-14.6); RDW-SD 44.2 fL; WBC 12.04 10^3/uL (4.4-10.8)
[2023-09-21 07:09] LABS: Absolute Lymphocyte Count 0.51 10^3/uL (1.2-3.4)
[2023-09-21] MEDS: Omeprazole 20 MG CAPCR PO (07:27)
[2023-09-21 07:35] LABS: Anion Gap 8.8 mmol/L (3-11); BUN 12 mg/dL (7-18); C-Reactive Protein 20.04 mg/dL (0.0-0.3); CO2 28.2 mmol/L (21.0-32.0); CREATININE 0.6 mg/dL (0.55-1.02); Calcium 9.6 mg/dL (8.5-10.1); Chloride 105 mmol/L (98-107); Estimated GFR 103.98 (mL/min/1.73m2); Glucose 167 mg/dL (74-106); Magnesium 1.9 mg/dL (1.8-2.4); Potassium 3.7 mmol/L (3.5-5.1); Sodium 142 mmol/L (136-145); TSH 0.35 uIU/mL (0.36-3.74)
--- NOTE | 2023-09-21 09:01 | PDOC.CMIN ---
Date of service: 09/21/23 Time of Service: 09:03 Care Management Initial Assmt Initial Assessment REASON FOR HOSPITALIZATION:: Acute hypoxic respiratory failure, asthma exacerbation PREVIOUS FUNCTIONAL STATUS/SOCIAL/FAMILY SUPPORTS:: Doreen resides in [place] with her , Thursday. She reports they are both independent at baseline and have no needs in the community. Doreen reports she is retired, but her continues to work but is currently on vacation. CURRENT FUNCTIONAL STATUS:: Sitting up in her chair, pleasant in interaction-not overly forthcoming-oxygen in place. Doreen reports improvement in her breathing. She identifies no needs at this time. ADVANCE DIRECTIVES:: None on file. Has patient been provided with info about the portal/API?: Yes Did the patient sign up for the portal?: No INSURANCE COVERAGE / FINANCIAL ISSUES:: [employer] CURRENT HOME/COMMUNITY SERVICES/EQUIPMENT:: None, currently. PRIMARY CARE PHYSICIAN:: Katy Clancy POTENTIAL DISCHARGE NEEDS:: Follow up appointments. PATIENT/FAMILY EDUCATION NEEDS:: Review discharge instructions, discuss Ask Me Three. ANTICIPATED BARRIERS TO DISCHARGE:: None identified. TRANSPORTATION:: With , Thursday. PLAN:: Doreen will return home when ready per MD, no additional services anticipated. Her , Thursday will transport her home via private vehicle. She will follow up with her PCP and plan of care as prescribed. PFSH All Active Problems Abdominal pain (Acute) Acute exacerbation of chronic obstructive pulmonary disease (COPD) (Acute) COPD (chronic obstructive pulmonary disease) (Chronic) Acute bronchitis (Acute) Discharge planning issues (Acute) DVT prophylaxis (Acute) Malnutrition (Acute) Tobacco abuse (Acute) Asthma exacerbation (Acute) Acute hypoxemic respiratory failure (Acute) Pneumonia (Acute) Hypoxia (Acute) Acute bronchospasm (Acute) Arthritis of right wrist (Chronic) STT injection: 08/19/23 Acute carpal tunnel syndrome of right wrist (Acute) S/P ECTR: 08/19/2023 Mass of soft tissue of right upper extremity (Acute) Osteophyte of elbow (Acute) Exostosis of right humerus (Acute) S/P excision: 04/02/2020 Mass of finger of right hand (Acute) Right little finger radial PIP Medical History History of anxiety panic attacks some associated with sob. on no anxiety meds presently Benign hypertension on no meds thought manifestation ofsituational stress Surgical History History of colonoscopy x5 fasciotomy right lateral epicondylitis (08/26/10) Bilateral Ulnar Nerve Transposition (07/08/10) right elbow Laparoscopy, diagnostic Hyseterectomy, Total Laparoscopic w/ BSO with incidental appendectomy Excision, Distal Clavicle R Family History (Updated 09/20/23 @ 16:13 by Meryl Mckeon MD) Father Colon cancer Other Cancer Diabetes Heart disease Social History Smoking/Tobacco Use Status: Current every day Tobacco Type: cigarettes Smoking packs per day: 0.5 Smoking cigarettes per day: 10.0 Years smoked: 40 Smoking pack-years: 20.00 Tobacco: How many years used: 40 Smoking risk assessment performed?: Yes Alcohol Intake: current Alcohol Intake frequency: a few times a week Alcohol type: beer Drug use: Never Substance use type: does not use Housing: house Do you feel safe at home: Yes Do you feel safe in your relationship?: Yes SDOH(Care Management) Screening Will the Patient Participate in the Screening?: Yes Do you worry about having a steady place to live?: no Problems where you live: other In the past 12 months, have you had to go without electric, gas, oil or water in your home?: no Have you or anyone in your house had to go without enough food to eat?: no Has lack of transportation kept you from medical appointments or from doing things needed for daily living?: no Has anyone in your support network made you feel unsafe for any reason?: no
[2023-09-21] MEDS: Benzonatate 200 MG CAP PO ×3 (09:26→19:28)
[2023-09-21] MEDS: Acetaminophen 500 MG TAB 1000 MG PO ×3 (09:26→19:28)
[2023-09-21] MEDS: predniSONE 20 MG TAB 40 MG PO (09:26)
[2023-09-21] MEDS: guaiFENesin 600 MG TABCR PO ×2 (09:26→19:29)
[2023-09-21] MEDS: busPIRone 5 MG TAB 7.5 MG PO (09:26)
[2023-09-21] MEDS: Calcium 600mg/Vit D 200U TAB 2 TAB PO (09:28)
--- NOTE | 2023-09-21 09:30 | PGE_ITS ---
Date of Service Date of service: 09/21/23 Time of Service: 09:30 Assessment and Plan Assessment and plan (1) Acute hypoxemic respiratory failure: Status: Acute Assessment and plan: Due to asthma exacerbation/acute bronchitis/possible RML pneumonia. Improving. Now down to 1 L. Continue scheduled + prn nebs, abx, steroids. Await pneumonia studies. Encourage pulmonary toilet. (2) Acute exacerbation of chronic obstructive pulmonary disease (COPD): Status: Acute Assessment and plan: Due to acute bronchitis +/- PNA. As above (3) Acute bronchitis: Status: Acute Assessment and plan: +/- RML PNA vs atelectasis As above (4) Tobacco abuse: Status: Acute Assessment and plan: Counseling Provide nicotine replacement (5) Malnutrition: Status: Acute Assessment and plan: C/s nutrition Await serology Also, we are double-checkign height/weight because the patient does not look like she has a BMI of 19. (6) Atrial flutter by electrocardiogram: Status: Suspected Assessment and plan: repeat EKG. Cardiac monitoring. (7) Abdominal pain: Status: Acute Assessment and plan: Likely musculoskeletal, due to coughing. No change to bowel habits described. (8) DVT prophylaxis: Status: Acute Assessment and plan: SC lovenox (9) Discharge planning issues: Status: Acute Assessment and plan: Continues to require hospitalization. Full code, as discussed with the patient. Subjective Subjective Interval history since last seen: Ms Mejia is feeling better. She is down to 1L of NC saturating 92-93%. Denies dizziness, CP, SOB, n/v. Still coughing up green sputum. Wheezing. Exam Narrative Exam Narrative: General: A very pleasant middle-aged female who is on 1L of O2 by NC, A&Ox3, does not look cachectic HEENT: EOMI, MMM Cardiovascular: RRR, no m/r/g Lungs: Expiratory wheezing B Gastrointestinal: soft, tender in LLQ, nondistended Extremities: no edema BLEs, 1+ pedal pulses B Objective Last Vital Signs Temp 36.2 C L 09/20/23 22:32 Pulse 77 09/21/23 04:01 Resp 22 09/21/23 04:01 BP 109/62 09/21/23 04:01 Pulse Ox 93 09/21/23 04:01 Laboratory Results - last 24 hr 09/20/23 09/20/23 09/20/23 08:57 09:15 13:05 WBC 11.94 H RBC 4.03 Hgb 14.3 Hct 40.9 MCV 102 H MCH 35.5 H MCHC 35.0 RDW 11.6 L Plt Count 259 MPV 9.8 Immature Gran % 0.5 Neutrophils % 77.2 Lymphocytes % 6.5 Monocytes % 14.7 Eosinophils % 0.2 Basophils % 0.9 Nucleated RBC % 0.0 Absolute Neutrophils 9.22 H Absolute Lymphocytes 0.78 L Absolute Monocytes 1.76 H Absolute Eosinophils 0.02 Absolute Basophils 0.11 RBC Morphology Normal VBG pH 7.37 VBG pCO2 45 VBG pO2 49 VBG HCO3 26 VBG Total CO2 24 VBG O2 Saturation 85 VBG Base Excess 1 VBG Lactate 1.1 Sodium 138 Potassium 3.5 Chloride 98 Carbon Dioxide 28.8 Anion Gap 11.2 H BUN 9 Creatinine 0.6 Est GFR (CKD-EPI 2020) 103.98 Glucose 122 H Calcium 9.6 Magnesium Total Bilirubin 0.6 AST 14 L ALT 21 Alkaline Phosphatase 106 C-Reactive Protein Total Protein 7.9 Albumin 3.2 L Procalcitonin 0.4 TSH Urine Opiates Screen Urine Methadone Screen Ur Barbiturates Screen Ur Tricyclics Screen Ur Amphetamines Screen U Benzodiazepines Scrn Urine Cocaine Screen Ur THC Screen COVID-19 Source Nasopharynx SARS-CoV-2 (PCR) Negative Influenza Type A (PCR) Negative Influenza Type B (PCR) Negative RSV (PCR) Negative 09/20/23 09/21/23 14:40 05:28 WBC 12.04 H RBC 3.78 L Hgb 13.6 Hct 39.4 MCV 104 H MCH 36.0 H MCHC 34.5 RDW 11.5 L Plt Count 262 MPV 10.7 Immature Gran % 0.8 Neutrophils % 85.3 Lymphocytes % 4.2 Monocytes % 9.1 Eosinophils % 0.0 Basophils % 0.6 Nucleated RBC % 0.0 Absolute Neutrophils 10.27 H Absolute Lymphocytes 0.51 L Absolute Monocytes 1.10 H Absolute Eosinophils 0.00 Absolute Basophils 0.07 RBC Morphology VBG pH VBG pCO2 VBG pO2 VBG HCO3 VBG Total CO2 VBG O2 Saturation VBG Base Excess VBG Lactate Sodium 142 Potassium 3.7 Chloride 105 Carbon Dioxide 28.2 Anion Gap 8.8 BUN 12 Creatinine 0.6 Est GFR (CKD-EPI 2020) 103.98 Glucose 167 H Calcium 9.6 Magnesium 1.9 Total Bilirubin AST ALT Alkaline Phosphatase C-Reactive Protein 20.04 H Total Protein Albumin Procalcitonin TSH 0.35 L Urine Opiates Screen Negative Urine Methadone Screen Negative Ur Barbiturates Screen Negative Ur Tricyclics Screen Negative Ur Amphetamines Screen Negative U Benzodiazepines Scrn Negative Urine Cocaine Screen Negative Ur THC Screen Negative COVID-19 Source SARS-CoV-2 (PCR) Influenza Type A (PCR) Influenza Type B (PCR) RSV (PCR) PAWSS Have you Been Recently Intoxicated or Drunk Within the Last 30 days?: No Have you Ever Experienced Previous Episodes of Alcohol Withdrawal?: No Have you ever Experienced Withdrawal Seizures?: No Have you ever Experienced Delirium Tremens(DT)s?: No Have you ever undergone Alcohol Rehabilitation Treatment (i.e, inpt ot outpatient treatment programs)?: No Have you ever Experienced Blackouts?: No Have you ever Combined Alcohol with other Downers within the last 90 days?: No Have you ever Combined Alcohol with any other Substance of Abuse during the last 90 days?: No Positive Blood Alcohol level on Presentation? [PCS.BAL]: No Evidence of Increased Autonomic Activity (i.e. HR>120, tremor, sweating, agitation, nausea)?: No Result: 0 Time Spent with Patient Time Spent with Patient: 25-34 minutes Time was spent: preparing to see the patient(eg.review tests), obtaining and/or reviewing separately otained hiistory, ordering medications,tests, procedures, referring, communicating with other health career and transition teacher, indepentently interpreting results, counseling the patient and care coordination
[2023-09-21] MEDS: Normal Saline Flush 10 ML SYR IVP ×3 (10:35→19:30)
[2023-09-21] MEDS: cefTRIAXone 2 GM/50 ML BAG IVPB (11:56)
--- NOTE | 2023-09-21 16:00 | PHA.REVIEW2 ---
Pharmacy Admission Review Admission Clinical Review Admission Pharmacy Review: (Updated 09/20/23 @ 16:09 by Meryl Mckeon MD) Abdominal pain (Acute) Acute exacerbation of chronic obstructive pulmonary disease (COPD) (Acute) Acute bronchitis (Acute) Discharge planning issues (Acute) DVT prophylaxis (Acute) Malnutrition (Acute) Tobacco abuse (Acute) Acute hypoxemic respiratory failure (Acute) Pneumonia (Acute) Hypoxia (Acute) Acute bronchospasm (Acute) Sulfa (Sulfonamide Antibiotics) Allergy (Severe, Verified 09/20/23 09:04) rash, lips/tongue swelling Resuscitation Status Full Code Height 5 ft 1 in Weight 48.8 kg Pharmacy Admission Review Renal Dosing Renal Dosing: BUN 12 mg/dL (7-18) 09/21/23 05:28 Creatinine 0.6 mg/dL (0.55-1.02) 09/21/23 05:28 Medications needing adjustments: Reviewed (crcl = 78, no adjustments needed) Anticoagulation Anticoagulation: Hgb 13.6 g/dL (11.2-15.7) 09/21/23 05:28 Hct 39.4 % (36.0-46.0) 09/21/23 05:28 Plt Count 262 10^3/uL (130-400) 09/21/23 05:28 Creatinine 0.6 mg/dL (0.55-1.02) 09/21/23 05:28 DVT Prophylaxis: Reviewed Medications: Enoxaparin (40 mg q24h) Therapeutic Anticoagulation: N/A Opiate Usage Evaluate Pain Scale/Pains Meds: N/A (not on opiates) Relevant Labs Relevant Labs: Sodium 142 mmol/L (136-145) 09/21/23 05:28 Potassium 3.7 mmol/L (3.5-5.1) 09/21/23 05:28 Chloride 105 mmol/L (98-107) 09/21/23 05:28 Magnesium 1.9 mg/dL (1.8-2.4) 09/21/23 05:28 C-Reactive Protein 20.04 mg/dL (0.0-0.3) H 09/21/23 05:28 Electrolytes, C-Reactive P, ESR: Reviewed (low TSH, repeating tomorrow) DM Control DM Control: Reviewed (no diabetes diagnosis, glucose slightly elevated likely d/t steroids) Cardiac Review BP, HR, EF%: Reviewed List meds needing interventions: n/a QTc Review QTc: Reviewed (QTc = 479 09/20/23) IV to PO Switch IV Medications: Reviewed (continue IV abx for now) Home Meds Home Med List reviewed: Reviewed Current Meds Current Medication Order Review: Reviewed Pharmacy Antibiotic Review Relevant Labs: Relevant Labs 09/21/23 05:28 C-Reactive Protein 20.04 H Pharmacy Antibiotic Activity: Reviewed, no change (ceftriaxone 2g q24h + doxy 100 mg IV for presumed pneumonia, de-escalate/switch to PO when clinically improving)
[2023-09-21 18:39] LABS: HIV-1/2 Ag & Ab Screen Negative (Negative)
[2023-09-21] MEDS: Enoxaparin 40 MG/0.4 ML SYR SC (18:44)
[2023-09-21] MEDS: Sertraline 50 MG TAB PO (19:29)
[2023-09-21] MEDS: Ibuprofen 600 MG TAB PO (19:29)
[2023-09-21 19:30] LABS: Legionella Ag Detection Urine Negative (Negative)
[2023-09-22] VITALS (7 sets, daily range): BP systolic 125–138; BP diastolic 76–80; PULSE 67–103; RESP 2–22; TEMP 36.1–36.6; O2SAT 90–97
[2023-09-22] MEDS: Albuterol/Ipratropium 3 ML UPD VIAL UPD (01:24)
[2023-09-22] MEDS: Nystatin 500000 UNITS/5 ML SUSP 5ML CUP PO ×3 (05:34→13:46)
[2023-09-22] MEDS: DOXYCYCLINE 100 MG in Normal Saline 100 ML IVPB (05:43)
[2023-09-22 07:21] LABS: Abs Immature Grans 0.15 10^3/uL (0.0-0.06); Absolute Eosinophil Count 0.27 10^3/uL (0.0-0.7); Absolute Monocyte Count 1.32 10^3/uL (0.1-0.8); Basophils % 0.4; Eosinophils % 1.9; HCT 35.8 % (36.0-46.0); HGB 12.3 g/dL (11.2-15.7); Immature Grans % 1.1; Lymphocytes % 17.5; MCH 35.3 pg (27.0-33.0); MCHC 34.4 % (32.0-36.0); MCV 103 fL (80-95); MPV 9.9 fL (8.0-11.0); Monocytes % 9.3; Neutrophils % 69.8; Platelet Count 296 10^3/uL (130-400); RBC 3.48 10^6/uL (3.93-5.22); RDW 11.6 % (11.7-14.6); WBC 14.19 10^3/uL (4.4-10.8)
[2023-09-22 07:23] LABS: Absolute Basophil Count 0.06 10^3/uL (0.0-0.2); Absolute Lymphocyte Count 2.48 10^3/uL (1.2-3.4)
[2023-09-22 07:52] LABS: BUN 21 mg/dL (7-18); CREATININE 0.6 mg/dL (0.55-1.02); Calcium 9.5 mg/dL (8.5-10.1); Chloride 105 mmol/L (98-107); Estimated GFR 103.98 (mL/min/1.73m2); Glucose 97 mg/dL (74-106); Magnesium 1.5 mg/dL (1.8-2.4); Potassium 3.1 mmol/L (3.5-5.1); Sodium 144 mmol/L (136-145)
[2023-09-22] MEDS: busPIRone 5 MG TAB 7.5 MG PO (08:12)
[2023-09-22] MEDS: Normal Saline Flush 10 ML SYR IVP ×3 (08:12→12:56)
[2023-09-22] MEDS: guaiFENesin 600 MG TABCR PO (08:13)
[2023-09-22] MEDS: predniSONE 20 MG TAB 40 MG PO (08:13)
[2023-09-22] MEDS: Acetaminophen 500 MG TAB 1000 MG PO ×2 (08:13→13:46)
[2023-09-22] MEDS: Calcium 600mg/Vit D 200U TAB 2 TAB PO (08:13)
[2023-09-22] MEDS: Benzonatate 200 MG CAP PO ×2 (08:13→13:46)
[2023-09-22] MEDS: Omeprazole 20 MG CAPCR PO (08:13)
[2023-09-22 08:21] LABS: Procalcitonin 0.2 ng/mL
--- NOTE | 2023-09-22 08:48 | TELEFU_ITS ---
Date of service: 09/21/23 Time of Service: 11:00 Nutrition Note NOTE: Doreen is a 58yo female admitted for acute abdominal pain, acute hypoxemic resp. failure, atrial flutter and acute exac. of COPD. Her PMH is also nutritionally significant for malnutrition and tobacco use. Ordered for Calcium/vitamin D tab (400IU vitamin D TDD). Currently on prednisone. Pt reports stable weight and indeed only a 1.7kg wt loss noted x 1year with ~1kg recent wt gain over admission thus far. Current BMI is WNL and she is reporting fair appetitie with 50-75% of meals consumed per nursing record. Denies current N/V/C/D. Her Albumin is WNL. Pt reports taking CIB supplement at home. Estimated energy needs: 1708 kcals (35kcal/kg for wt maintenance/slow wt gain), 73g Protein (1.5g/kg) and 1708mL fluid (1mL per require kcal) Pt does not appear to be in a malnourished state - Albumin, BMI wnl, with stable weigt and fair intake. However, offered Boost ONS on breakfast and lunch tray (strawberry perferred per pt) to help increase nutrient and protein intake. Encouraged to choose a variet y of foods from the menu and prioritize protein rich foods. Will follow for wt concerns, lab changes and ONS/meal toleration and intake. Time Spent in Nutritional Counseling and Treatment: 15 minutes
[2023-09-22] MEDS: MAGNESIUM SULFATE 4 GM/100 ML BAG IVPB (11:38)
[2023-09-22] MEDS: Potassium Chloride 20 MEQ TABCR 40 MEQ PO (11:40)
[2023-09-22 12:19] LABS: Lab Add On Test DONE
[2023-09-22] MEDS: cefTRIAXone 2 GM/50 ML BAG IVPB (12:56)
[2023-09-22 13:01] LABS: Folate 10.3 ng/mL (8.6-20.0); Vitamin B12 991 pg/mL (193-986)
--- NOTE | 2023-09-22 17:06 | W.PM.DS.N ---
Date of service: 09/22/23 Time of Service: 17:06 DS: Diagnosis Discharge Diagnosis (1) Acute hypoxemic respiratory failure: Status: Resolved (2) Acute exacerbation of chronic obstructive pulmonary disease (COPD): Status: Acute (3) Right middle lobe pulmonary infiltrate: Status: Acute Asessment and Plan: atelectasis vs pneumonia (4) Acute bronchitis: Status: Acute (5) Tobacco abuse: Status: Chronic (6) Malnutrition: Status: Chronic (7) Atrial flutter by electrocardiogram: Status: Ruled-out (8) Abdominal pain: Status: Resolved (9) Hypokalemia: Status: Acute (10) Hypomagnesemia: Status: Acute (11) Colitis: Status: Suspected Discharge Plan Disposition Patient Disposition: Home Condition: Improving Discharge Details Reason For Visit: Acute Hypoxic Respiratory Failure, Asthma exacerba Admit Date/Time: 09/20/23 13:10 Admit Provider: Meryl Mckeon Attending Provider: Meryl Mckeon Primary Care Provider: Katy Clancy [facility] Hospital Course: Ms Mejia is a 58 year old female with PMHx of non-oxygen dependent COPD, hypertension, anxiety, tobacco abuse, who was a patient on [facility] hospitalist service from 09/20/23 until 09/22/23 for acute hypoxic respiratory failure due to acute exacerbation of COPD, acute bronchitis, and a question of RML pneumonia on CT which ruled out an acute PE. She initially presented with O2 sats in the 70s on RA and required up to 4L of O2 by NC to saturate in the 90s in the ED, so she was admitted to the ICU. However, due to her rapid improvement, she was downgraded to medical surgical floor level of care almost immediately, as she now only needed 2 L of O2 by NC. She was treated with empiric doxycycline and ceftriaxone, systemic steroids as well as continuation of her home Breztri, scheduled + prn nebulizer therapy. With this, she quickly improved and was able to get off of oxygen, including on ambulation. Her sputum culture grew normal cristy. Her blood cultures show NGTD x 48 hrs. She tested negative for COVID-19, influenza, and RSV. She tested negative for HIV (obtained due to ground-glass appearance of CT, initial high O2 requirement, initially erroneously reported BMI of 18). Her urine legionella antigen is negative. Her mycoplasma sputum and urine strep antigens are still pending at the time of discharge. She is going home today to complete a 5 day course of doxycycline and cefpodoxime, a short prednisone taper, and with prescription for nebulizer treatments (She has a nebulizer machine). She is medically stable for discharge and is ready for discharge. She should have bloodwork done in 1 week to follow up her potassium and magnesium levels. Results should go to her PCP. She is going home on magnesium supplementation. Care for patient as well as completion of her discharge summary on day of discharge took 45 minutes. Home Meds and New Rx's Prescriptions: New ipratropium-albuterol 0.5 mg-3 mg(2.5 mg base)/3 mL Solution For Nebulization 3 ml UPD QID PRN PRN (Reason: shortness of breath or wheezing) Qty: 180 0RF albuterol sulfate 2.5 mg /3 mL (0.083 %) Solution For Nebulization 2.5 mg UPD Q2H PRN PRN (Reason: shortness of breath or wheezing) Qty: 180 0RF benzonatate 200 mg Capsule 200 mg PO TID PRN PRN (Reason: cough) Qty: 30 0RF guaifenesin [Mucus Relief ER] 600 mg Tablet Extended Release 12hr 600 mg PO BID PRN PRN (Reason: cough) Qty: 30 0RF nicotine 14 mg/24 hr Patch 24 Hour 14 mg transdermal DAILY PRN PRNQty: 28 0RF Mag 64 64 mg Tablet,Delayed Release (Dr/Ec) 64 mg PO BID Qty: 30 0RF nystatin 100,000 unit/mL Suspension 500,000 unit PO 5X/DAY Qty: 60 1RF prednisone 20 mg Tablet See Rx Instructions .ROUTE .COMPLEX Qty: 7 0RF Rx Instructions: 40 mg PO daily x 2 days, then 20 mg PO daily x 2 days, then 10 mg PO daily x 2 days, then stop omeprazole 20 mg Capsule,Delayed Release(Dr/Ec) 20 mg PO DAILY@0730 Qty: 10 0RF cefpodoxime 200 mg tablet 200 mg PO BID Qty: 4 0RF Rx Instructions: first dose on the morning of 09/23/23 must administer with a meal/food doxycycline hyclate 100 mg tablet 100 mg PO BID Qty: 5 0RF Rx Instructions: first dose tonight, 09/22/23 Continued sertraline 50 mg tablet 50 mg PO DAILY buspirone 7.5 mg tablet 7.5 mg PO DAILY Beto Norris 160-9-4.8 mcg/actuation HFA aerosol inhaler 2 inh inhalation BID albuterol sulfate [ProAir HFA] 8.5 GM HFA aerosol inhaler 1 gm Inhalation PRN PRN calcium carbonate-vit D3-min 600 mg calcium- 400 unit Tablet 2 tab PO DAILY acetaminophen 500 mg tablet 1,000 mg PO TID Qty: 90 0RF ibuprofen 600 mg tablet 600 mg PO TID PRN (Reason: pain) Qty: 90 0RF Discharge Instructions Instructions: Doxycycline (By mouth), Prednisone (By mouth), Cefpodoxime Proxetil (By mouth), How to Stop Smoking (DC), Acute Bronchitis (ED), COPD (Chronic Obstructive Pulmonary Disease) (DC), Bacterial Pneumonia (DC), Hypomagnesemia (DC) Additional Instructions: Finish your antibiotics and your steroid taper as prescribed. Return to the hospital with any fever, worsening shortness of breath, chest pain, or bleeding. Follow up with your PCP in 1-2 weeks. Blood work in 1 week. Stand Alone Forms: Nursing Discharge Form Referrals: Katy Clancy [Primary Care Provider] - (Please call and make an Appointment in the next 2 weeks ) Activity:: Activity as Tolerated Equipment/Supplies:: No Equipment Needed Diet:: As Tolerated Discharge Orders Discharge Orders: Discharge Order (Routine); Ordered 09/22/23 Ordered By: Meryl Mckeon Other Ambulatory Orders: Basic Metabolic Panel (Routine) Timeframe: 20230929 Facility: [facility] - Location: Laboratory Outpatient - [facility] Ordered By: Meryl Mckeon Complete Blood Count w/Diff (Routine) Timeframe: [id number] Facility: [facility] - Location: Laboratory Outpatient - [facility] Ordered By: Meryl Mckeon Magnesium (Routine) Timeframe: [id number] Facility: [facility] - Location: Laboratory Outpatient - [facility] Ordered By: Meryl Mckeon DS: Summary Time Spent with Patient providing and/or coordinating discharge services: Greater than 30 minutes Status at Discharge Functional status at discharge: independent ambulation Overall status at discharge: patient is progressing back to baseline Mental Status: mental status grossly normal Speech and Movement: speech and movement normal Mood: congruent mood Affect: normal affect Quality:SDOH Health Related Social Needs: No Data to Display Exam Narrative Exam Narrative: General: A very pleasant middle-aged female who is on RA, A&Ox3 HEENT: EOMI, MMM Cardiovascular: RRR, no m/r/g Lungs: Expiratory wheezing B, improved Gastrointestinal: soft, tender in LLQ, nondistended Extremities: no edema BLEs, 1+ pedal pulses B Psych Mental Status: mental status grossly normal Speech and Movement: speech and movement normal Mood: congruent mood Affect: normal affect DS: Data Vitals/I&O Vitals and I&O: Vital Signs Temperature 36.3 C L 09/22/23 15:23 Temperature Source Tympanic 09/22/23 15:23 Pulse 72 09/22/23 15:23 Pulse Rhythm Regular 09/22/23 15:51 Pulse 89 09/21/23 16:22 Respiratory Rate 16 09/22/23 15:23 Respiratory Effort Non-Labored 09/22/23 15:51 Respiratory Depth Shallow 09/22/23 15:51 Respiratory Pattern Normal 09/22/23 15:51 Blood Pressure 132/76 09/22/23 15:23 Blood Pressure Mean 87 09/21/23 16:22 Blood Pressure Position Supine 09/20/23 14:40 Pulse Oximetry 94 09/22/23 15:23 Oxygen Delivery Method Room Air 09/22/23 15:23 Oxygen Flow Rate 0 09/22/23 15:23 Pain Level 0 09/22/23 15:23 Intake & Output 09/21/23 09/22/23 09/22/23 23:59 11:59 23:59 Intake Total 750.000 / 1670.000 120 / 360 240 / 360 Output Total 600 / 1250 250 / 250 Balance 150.000 / 420.000 -130 / 110 240 / 110 Intake: IV 150.000 / 260.000 120 / 120 Oral 600 / 1410 240 / 240 Output: Urine 600 / 1250 250 / 250 Other: Urine Color Yellow Yellow Urine Appearance Clear Clear Clear Comment mixed in stool but looks clear pT got up and used bathroom independently. Stool Size Small Moderate Smear Stool Characteristics Soft Soft Formed Brown Voiding Methods Bedside Commode Toilet Data Completed and Pending Completed studies during hospitalization [Text1]: CXR: 1. Diffuse interstitial disease. Differential considerations include pneumonia, reactive airways disease or bronchitis. CT chest: 1. No evidence of pulmonary embolism, thoracic aortic dissection or aneurysm. 2. Small infiltrate in the medial aspect of the right middle lobe. This may represent atelectasis or pneumonia. 3. Small airways disease. Consider acute bronchitis. 4. The splenic fracture shows mild bowel wall thickening and pericolonic inflammatory changes. This may represent colitis. There is a question of a single diverticulum and diverticulitis cannot be excluded. Labs on day of discharge: Labs from last 24 hours 09/22/23 09/21/23 09/20/23 06:48 05:28 14:40 WBC 14.19 H RBC 3.48 L Hgb 12.3 Hct 35.8 L MCV 103 H MCH 35.3 H MCHC 34.4 RDW 11.6 L Plt Count 296 MPV 9.9 Immature Gran % 1.1 Neutrophils % 69.8 Lymphocytes % 17.5 Monocytes % 9.3 Eosinophils % 1.9 Basophils % 0.4 Nucleated RBC % 0.0 Absolute Neutrophils 9.90 H Absolute Lymphocytes 2.48 Absolute Monocytes 1.32 H Absolute Eosinophils 0.27 Absolute Basophils 0.06 Sodium 144 Potassium 3.1 L Chloride 105 Carbon Dioxide 29.0 Anion Gap 10.0 BUN 21 H Creatinine 0.6 Est GFR (CKD-EPI 2020) 103.98 Glucose 97 Calcium 9.5 Magnesium 1.5 L Vitamin B12 991 H Folate 10.3 Procalcitonin 0.2 TSH 1.60 HIV 1&2 Ag/Ab, 4th Gen Negative Urine Legionella Ag Negative Add-On Test Request DONE Preliminary micro results at discharge 09/20/23 10:30 Blood Culture - Preliminary Blood NO GROWTH 48 HOURS 09/20/23 09:15 Blood Culture - Preliminary Blood NO GROWTH 48 HOURS 09/20/23 16:15 Sputum Culture - Preliminary Sputum Normal Cristy PFSH All Active Problems (Updated 09/22/23 @ 17:36 by Meryl Mckeon MD) Hypokalemia (Acute) Hypomagnesemia (Acute) Right middle lobe pulmonary infiltrate (Acute) Acute exacerbation of chronic obstructive pulmonary disease (COPD) (Acute) COPD (chronic obstructive pulmonary disease) (Chronic) Acute bronchitis (Acute) Discharge planning issues (Acute) DVT prophylaxis (Acute) Malnutrition (Chronic) Tobacco abuse (Chronic) Asthma exacerbation (Acute) Pneumonia (Acute) Hypoxia (Acute) Acute bronchospasm (Acute) Arthritis of right wrist (Chronic) STT injection: 08/19/23 Acute carpal tunnel syndrome of right wrist (Acute) S/P ECTR: 08/19/2023 Mass of soft tissue of right upper extremity (Acute) Osteophyte of elbow (Acute) Exostosis of right humerus (Acute) S/P excision: 04/02/2020 Mass of finger of right hand (Acute) Right little finger radial PIP Medical History History of anxiety panic attacks some associated with sob. on no anxiety meds presently Benign hypertension on no meds thought manifestation ofsituational stress Surgical History History of colonoscopy x5 fasciotomy right lateral epicondylitis (08/26/10) Bilateral Ulnar Nerve Transposition (07/08/10) right elbow Laparoscopy, diagnostic Hyseterectomy, Total Laparoscopic w/ BSO with incidental appendectomy Excision, Distal Clavicle R Family History Father Colon cancer Other Cancer Diabetes Heart disease Social History Smoking/Tobacco Use Status: Current every day Tobacco Type: cigarettes Smoking packs per day: 0.5 Smoking cigarettes per day: 10.0 Years smoked: 40 Smoking pack-years: 20.00 Tobacco: How many years used: 40 Smoking risk assessment performed?: Yes Alcohol Intake: current Alcohol Intake frequency: a few times a week Alcohol type: beer Drug use: Never Substance use type: does not use Housing: house Do you feel safe at home: Yes Do you feel safe in your relationship?: Yes Time Spent with Patient Time Spent with Patient: 45-69 minutes Time was spent: preparing to see the patient(eg.review tests), obtaining and/or reviewing separately otained hiistory, ordering medications,tests, procedures, referring, communicating with other health prompt care rn, indepentently interpreting results, counseling the patient and care coordination
--- NOTE | 2023-09-22 18:21 | PDOC.CMDIS ---
Date of service: 09/22/23 Time of Service: 18:21 LACE Index Scoring Tool Questions: Length of Stay (in days): 2 Was the patient admitted via the E.D.?: Yes Comorbidities: Chronic Pulmonary Disease E.D. Visits: 0 Answers: Total Score: 7 Risk of Readmission: Low Risk Care Management Discharge Plan Reason for Hospitalization: Acute hypoxic respiratory failure, asthma exacerbation Discharge Plan: Doreen returned home today with no new services. She was driven home via private vehicle by her . She will follow up with her PCP and discharge plan of care. She was happy to be going home. Patient/Family Education Needs: Review discharge instructions and limitations, discussion of self care needs including ask me three. SDOH Health Related Social Needs: No Data to Display
[2023-09-23 00:09] LABS: Streptococcus Pneumoniae Ag, U Negative (Negative)
[2023-09-24 18:00] LABS: Mycoplasma Pneumoniae PCR Negative (Negative); Specimen source sputum
== END 2023-09-22 17:48 | disposition home or self-care (01) | DRG 193 ==
LOC: ER 13:52 → ICU 14:24 → MS 09-21 20:13
PROVIDERS: Admitting Provider Internal Medicine; Emergency Provider Emergency Medicine Emergency Medical Services; PCP Nurse Practitioner Family; Visit Provider Internal Medicine
DX: J18.9 Pneumonia, unspecified organism (principal); J96.01 Acute respiratory failure with hypoxia; J44.0 Chronic obstructive pulmonary disease with (acute) lower respiratory infection; E46 Unspecified protein-calorie malnutrition; I48.92 Unspecified atrial flutter; J44.1 Chronic obstructive pulmonary disease with (acute) exacerbation; J20.9 Acute bronchitis, unspecified; F17.210 Nicotine dependence, cigarettes, uncomplicated; Z68.20 Body mass index [BMI] 20.0-20.9, adult; E87.6 Hypokalemia; E83.42 Hypomagnesemia; K52.9 Noninfective gastroenteritis and colitis, unspecified; R91.8 Other nonspecific abnormal finding of lung field; R10.9 Unspecified abdominal pain; I10 Essential (primary) hypertension; F41.9 Anxiety disorder, unspecified
CPT/HCPCS: 00123; 36415; 71275; 80048; 80053; 80307; 82805; 84145; 87040; 87389; 87449; 87637; 93005; 94618; 94640; 96361; 96374; 96375; 96376; 99291; J1650; 71046; 82607; 82746; 83605; 83735; 84443; 85025; 86140; 87070; 87205; 87581; 87899; 93010; 94664; 94667; 94668; 94760; 99223; 99232; 99239; J0696; J2930; J3475; J3490; J7512; J7613; J7620

== ENCOUNTER 2023-09-29 09:59 | Outpatient (CLI) | payer OTHER, SELFPAY ==
[2023-09-29 09:46] LABS: Abs Immature Grans 0.06 10^3/uL (0.0-0.06); Absolute Basophil Count 0.06 10^3/uL (0.0-0.2); Absolute Lymphocyte Count 2.77 10^3/uL (1.2-3.4); Absolute Monocyte Count 1.03 10^3/uL (0.1-0.8); Absolute Neutrophil Count 4.55 10^3/uL (1.2-6.7); Basophils % 0.7; Eosinophils % 1.2; HCT 42.8 % (36.0-46.0); HGB 14.9 g/dL (11.2-15.7); Immature Grans % 0.7; Lymphocytes % 32.3; MCH 35.9 pg (27.0-33.0); MCHC 34.8 % (32.0-36.0); MCV 103 fL (80-95); MPV 8.9 fL (8.0-11.0); Neutrophils % 53.1; Platelet Count 498 10^3/uL (130-400); RBC 4.15 10^6/uL (3.93-5.22); RDW-SD 45.7 fL; WBC 8.57 10^3/uL (4.4-10.8)
[2023-09-29 09:54] LABS: Anion Gap 5.9 mmol/L (3-11); BUN 13 mg/dL (7-18); CO2 33.1 mmol/L (21.0-32.0); CREATININE 0.7 mg/dL (0.55-1.02); Calcium 9.4 mg/dL (8.5-10.1); Chloride 101 mmol/L (98-107); Estimated GFR 100.19 (mL/min/1.73m2); Glucose 108 mg/dL (74-106); Magnesium 1.7 mg/dL (1.8-2.4); Potassium 3.7 mmol/L (3.5-5.1); Sodium 140 mmol/L (136-145)
== END 2023-09-29 10:00 | disposition home or self-care (01) ==
LOC: LBO 10:03
PROVIDERS: PCP Nurse Practitioner Family; Visit Provider Internal Medicine
DX: E83.42 Hypomagnesemia (principal); J44.1 Chronic obstructive pulmonary disease with (acute) exacerbation; R91.8 Other nonspecific abnormal finding of lung field
CPT/HCPCS: 36415; 80048; 83735; 85025

== ENCOUNTER 2023-12-10 20:59 | Outpatient (REF) | payer OTHER, SELFPAY ==
[2023-12-10 21:29] LABS: Abs Immature Grans 0.01 10^3/uL (0.0-0.06); Absolute Basophil Count 0.05 10^3/uL (0.0-0.2); Absolute Eosinophil Count 0.11 10^3/uL (0.0-0.7); Absolute Lymphocyte Count 1.53 10^3/uL (1.2-3.4); Absolute Monocyte Count 0.74 10^3/uL (0.1-0.8); Absolute Neutrophil Count 4.22 10^3/uL (1.2-6.7); Basophils % 0.8; Eosinophils % 1.7; HCT 47.2 % (36.0-46.0); HGB 16.3 g/dL (11.2-15.7); Immature Grans % 0.2; MCH 35.6 pg (27.0-33.0); MCHC 34.5 % (32.0-36.0); MCV 103 fL (80-95); MPV 10.8 fL (8.0-11.0); Monocytes % 11.1; Neutrophils % 63.2; Platelet Count 258 10^3/uL (130-400); RBC 4.58 10^6/uL (3.93-5.22); RDW 12.3 % (11.7-14.6); WBC 6.66 10^3/uL (4.4-10.8)
[2023-12-10 21:37] LABS: Magnesium 1.5 mg/dL (1.8-2.4)
== END 2023-12-10 21:00 | disposition home or self-care (01) ==
LOC: NCHCN 20:59
PROVIDERS: PCP Nurse Practitioner Family; Visit Provider Nurse Practitioner Family
DX: E83.42 Hypomagnesemia (principal); D75.839 Thrombocytosis, unspecified
CPT/HCPCS: 83735; 85025

== ENCOUNTER 2024-06-14 18:57 | Outpatient (REF) | payer OTHER, SELFPAY ==
[2024-06-14 21:33] LABS: HCT 42.7 % (36.0-46.0); HGB 15.1 g/dL (11.2-15.7); MCHC 35.4 % (32.0-36.0); MCV 102 fL (80-95); MPV 10.3 fL (8.0-11.0); Platelet Count 266 10^3/uL (130-400); RDW 12.1 % (11.7-14.6); RDW-SD 45.3 fL; WBC 6.78 10^3/uL (4.4-10.8)
[2024-06-14 22:10] LABS: ALT 43 U/L (14-59); AST 35 U/L (15-37); Albumin 4.3 g/dL (3.4-5.0); Alkaline Phosphatase 119 U/L (46-116); Anion Gap 9.5 mmol/L (3-11); BUN 11 mg/dL (7-18); Bilirubin, Total 0.71 mg/dL (0.2-1.0); CO2 29.5 mmol/L (21.0-32.0); CREATININE 0.6 mg/dL (0.55-1.02); Calcium 10.1 mg/dL (8.5-10.1); Calculated LDL 74 mg/dL (<100); Chloride 103 mmol/L (98-107); Cholesterol 210 mg/dL (<200); Estimated GFR 103.98 (mL/min/1.73m2); Glucose 91 mg/dL (74-106); HDL Cholesterol 108 mg/dL (40-60); Magnesium 1.7 mg/dL (1.8-2.4); Potassium 4.4 mmol/L (3.5-5.1); Sodium 142 mmol/L (136-145); TSH (W/Ref FT4) 1.31 uIU/mL (0.36-3.74); Total Protein 7.4 g/dL (6.4-8.2); Triglyceride 142 mg/dL (<150)
== END 2024-06-14 18:58 | disposition home or self-care (01) ==
LOC: NCHCN 18:57
PROVIDERS: PCP Nurse Practitioner Family; Visit Provider Nurse Practitioner Family
DX: F41.9 Anxiety disorder, unspecified (principal); E83.42 Hypomagnesemia; Z13.220 Encounter for screening for lipoid disorders
CPT/HCPCS: 80053; 80061; 85027; 83735; 84443

== ENCOUNTER 2024-06-24 00:20 | Outpatient (CLI) | payer OTHER, SELFPAY ==
--- NOTE | 2024-06-24 | DI.MAMMO_ITS ---
Exam(s) MAMMO SCREENING EXAM: MAMMO SCREENING CLINICAL HISTORY: SCREENING, Z12.31. TECHNIQUE: Bilateral full field digital CC and MLO mammographic images were obtained with 3D tomosyn thesis and utilizing computer aided detection (CAD). COMPARISON: Prior mammograms were reviewed. FINDINGS: There has been no significant change in the appearance and distribution of the fibroglandular tissue. There are no CAD designations. There are no new spiculated masses nor malignant appearing microcalcification groups. There is no significant architectural distortion nor skin thickening-retraction. IMPRESSION: No radiographic evidence of malignancy. BI-RADS Category 1 - Negative Breast Density - Category B - Scattered areas of fibroglandular density Breast density Category C or D implies that the patient has dense breast tissue. Dense breast tissue can make it harder to find cancer on a mammogram. Dense breast tissue is also associated with an incr eased risk of breast cancer. This information about the result of the mammogram report was provided to the patient to raise their awareness. Use this report when you speak with the patient about their risks for breast cancer, which includes their family history. At that time, you may recommend additional screening tests (Ultrasoun d or MRI) as these tests may add significant information. A negative radiographic report should not delay biopsy if a dominant or clinically suspicious mass is present. Up to ten percent of cancers are not identified on mammography. A negative report may reinforce clinical impression. Adenosis and dense breasts may obscure an underlying neoplasm. False positive reports average 6 to 10%. Patient will receive a letter notifying them of these results.
== END 2024-06-24 00:40 ==
LOC: DI 00:21
PROVIDERS: PCP Nurse Practitioner Family; Visit Provider Nurse Practitioner Family
DX: Z12.31 Encounter for screening mammogram for malignant neoplasm of breast (principal)
CPT/HCPCS: 77063; 77067

== ENCOUNTER 2024-09-30 15:05 | Outpatient (REF) | payer OTHER, SELFPAY ==
--- NOTE | 2024-09-30 10:25 | SKI_PTH ---
PATIENT: Doreen Mejia LOC: [facility] U#:[id number] AGE/SX: 59/F ROOM: RE09/30/[address]: Kayt Clancy : 1965 BED: DIS: 09/30/2024 SPEC #: [id number] RECD: 09/30/24 17:42 STATUS: DINORAH REGrecia #: [id number] GERARDO: 09/30/24 10:[address]: Katy Clancy DEPT: Surgical Specimen RECD BY: Melani Berwer Tissues: 1 - SKIN BIOPSY(SHAVE/PUNCH) Procedures: SKIN LEVEL 4 SPECIAL STAIN 1 Comments: [id number]
== END 2024-09-30 15:06 | disposition home or self-care (01) ==
LOC: NCHCN 15:05
PROVIDERS: PCP Nurse Practitioner Family; Visit Provider Nurse Practitioner Family
DX: L28.2 Other prurigo (principal); L40.8 Other psoriasis
CPT/HCPCS: 88305; 88312

== ENCOUNTER 2024-10-21 01:17 | Outpatient (CLI) | payer OTHER, SELFPAY ==
[2024-10-24 15:09] LABS: TB Interpretation Negative (Negative); TB2 Ag minus Nil 0.01 IU/mL
== END 2024-10-21 01:18 | disposition home or self-care (01) ==
LOC: LBO 01:17
PROVIDERS: PCP Nurse Practitioner Family; Visit Provider Dermatology
DX: L40.0 Psoriasis vulgaris (principal); Z79.899 Other long term (current) drug therapy
CPT/HCPCS: 36415; 86480

== ENCOUNTER 2025-06-19 14:55 | Outpatient (REF) | payer OTHER, SELFPAY ==
[2025-06-19 16:18] LABS: Abs Immature Grans 0.03 10^3/uL (0.0-0.06); HCT 45.4 % (36.0-46.0); HGB 15.9 g/dL (11.2-15.7); Immature Grans % 0.3 %; MCH 35.1 pg (27.0-33.0); MCHC 35.0 % (32.0-36.0); MCV 100 fL (80-95); MPV 10.2 fL (8.0-11.0); Platelet Count 256 10^3/uL (130-400); RBC 4.53 10^6/uL (3.93-5.22); RDW 11.9 % (11.7-14.6); RDW-SD 44.4 fL; WBC 8.68 10^3/uL (4.4-10.8)
[2025-06-19 16:54] LABS: ALT 34 U/L (14-59); AST 28 U/L (15-37); Albumin 4.3 g/dL (3.4-5.0); Alkaline Phosphatase 115 U/L (46-116); Anion Gap 9.4 mmol/L (3-11); BUN 10 mg/dL (7-18); Bilirubin, Total 0.8 mg/dL (0.2-1.0); CO2 30.6 mmol/L (21.0-32.0); Calcium 9.4 mg/dL (8.5-10.1); Chloride 101 mmol/L (98-107); Estimated GFR 107.98 (mL/min/1.73m2); Glucose 113 mg/dL (74-106); Magnesium 1.7 mg/dL (1.8-2.4); Potassium 3.7 mmol/L (3.5-5.1); Sodium 141 mmol/L (136-145); TSH (W/Ref FT4) 1.76 uIU/mL (0.36-3.74); Total Protein 7.6 g/dL (6.4-8.2); Vitamin D 25 Total 34 ng/mL (30-100)
== END 2025-06-19 14:56 | disposition home or self-care (01) ==
LOC: NCHCN 14:55
PROVIDERS: PCP Nurse Practitioner Family; Visit Provider Nurse Practitioner Family
DX: R63.4 Abnormal weight loss (principal); M81.0 Age-related osteoporosis without current pathological fracture; Z00.00 Encounter for general adult medical examination without abnormal findings; E83.42 Hypomagnesemia
CPT/HCPCS: 80053; 82306; 83735; 84443; 85025

== ENCOUNTER → 2025-07-20 02:05 | Outpatient (CLI) | payer OTHER, SELFPAY ==
--- NOTE | 2025-07-20 | DI.MAMMO_ITS ---
Exam(s) MAMMO SCREENING EXAM: MAMMO SCREENING CLINICAL HISTORY: SCREENING,Z12.31 TECHNIQUE: Bilateral full field digital CC and MLO mammographic images were obtained with 3D tomosynthesis and utilizing computer aided detection (CAD). COMPARISON: Comparison is made with prior examinations. FINDINGS: Masses/Architectural Distortion: No suspicious masses or areas of architectural distortion are present. Microcalcifications: No suspicious pleomorphic-type are seen. Skin Thickening/Nipple Retraction: None. IMPRESSION: 1. No significant interval change with no specific features of malignancy noted. 2. Unless there is more urgent need, screening mammography is recommended, as per [place] [employer] guidelines. BI-RADS Category 1 - Negative Breast Density - Category B - There are scattered areas of fibroglandular density. Breast density Category C or D implies that the patient has dense breast tissue. Dense breast tissue can make it harder to find cancer on a mammogram. Dense breast tissue is also associated with an increased risk of breast cancer. This information about the result of the mammogram report was provided to the patient to raise their awareness. Use this report when you speak with the patient about their risks for breast cancer, which includes their family history. At that time, you may recommend additional screening tests (Ultrasound or MRI) as these tests may add significant information. A negative radiographic report should not delay biopsy if a dominant or clinically suspicious mass is present. Up to ten percent of cancers are not identified on mammography. A negative report may reinforce clinical impression. Adenosis and dense breasts may obscure an underlying neoplasm. False positive reports average 6 to 10%. Patient will receive a letter notifying them of these results.
--- NOTE | 2025-07-20 13:29 | DI.DEXA_ITS ---
Exam(s) XR DEXA BONE DENSITY W/WO TYLER EXAM: XR DEXA BONE DENSITY W/WO TYLER CLINICAL HISTORY: PRIMARY OSTEOPOROSIS,M81.0 TECHNIQUE: COMPARISON: CR XR DEXA BONE DENSITY W/WO TYLER from 09/27/2021 FINDINGS: Lateral Spine Image: Unremarkable. No compression deformities identified. Left hip: Total T-Score: -2.3. This compares to -1.9 on the prior examination. Total Z-Score: -1.3 T- and Z-scores: Note is made of osteoporosis in the femoral neck with a T-score of -3.1. Lumbar Spine: Total T-Score: -2.8 . This compares to -2.8 on the prior examination for no significant change. Total Z-Score: -1.4 T- and Z-scores: Findings are consistent with osteoporosis. IMPRESSION: Osteoporosis in the lumbar spine and left femoral neck.
== END ==
PROVIDERS: PCP Nurse Practitioner Family; Visit Provider Nurse Practitioner Family
DX: Z12.31 Encounter for screening mammogram for malignant neoplasm of breast (principal); M81.0 Age-related osteoporosis without current pathological fracture
CPT/HCPCS: 77063; 77067; 77080